=== PATIENT | female | born 1980 | race Caucasian/White ===

== ENCOUNTER 2021-11-22 08:00 | Emergency (ER) | payer MEDICAID, SELFPAY ==
[2021-11-22 08:07] VITALS: BP 126/72; PULSE 72; RESP 16; TEMP 37.6; O2SAT 99
--- NOTE | 2021-11-22 08:22 | ED.GENADUL_ITS ---
Discharge Plan Disposition Patient Disposition: HOME Condition: Stable Discharge Details Clinical Impression: Cellulitis Primary Care Provider: Yuliya Horne ED Provider: Manuel Can Home Meds and New Rx's Prescriptions: New sulfamethoxazole-trimethoprim [Bactrim DS] 800-160 mg tablet 1 tab PO BID Qty: 20 RF: 0 Discharge Instructions Instructions: Cellulitis (ED) Additional Instructions: Bactrim as directed. Rest, elevate, warm compresses every 2 hours for 20 minutes. [id number] Tylenol and/or Motrin as directed for discomfort. Please follow the instructions given to you by the power and recovery supervisor team. Please watch for new or worsening symptoms and return to the ER for any concerns. Lastly, I recommend following up with your primary care provider in few days for cellulitis recheck. Medical Decision Making 41-year-old female reports left foot cellulitis status post IV drug use yesterday, relapsing with IV cocaine approximately 2 months ago. She has no concern for retained foreign body, declines a x-ray of the left foot. Will update tetanus today, initiate oral antibiotics, Bactrim, and request that the power and recovery supervisor come talk with the patient. Clinically she appears well, nontoxic, nonseptic, afebrile, no lymphangitic streaking. Neuro, vascular, tendon intact. First dose of p.o. antibiotics given here in the ER. college coach here in room 1 to talk with the patient. Patient has no additional questions or concerns and is comfortable with discharge at this time. Standard discharge and return precautions were provided This documentation was generated using Edfa3ly dictation system, please disregard any oddities of phrase or misspellings. Medical Records Medical records reviewed: Yes I reviewed the patient's medical records. HPI General Mode of arrival: ambulatory . Date/Time Provider Initiated Documentation: 11/22/21 08:14 . Limitations to Documentation: no limitations . Information obtained by: patient . HPI Narrative: This is a 41-year-old female, denies significant past medical history, presenting to the ER for left foot cellulitis that began yesterday after relapsing with IV cocaine. Patient states that she was clean for 12 years but relapsed approximately 2 months ago. She states that she was initially using both of her upper extremities but has since moved down to her foot. Began using her left foot yesterday and noticed now that it is warm, red, painful. She denies fever, numbness, tingling, weakness or any other injuries. Denies skin rash elsewhere on her body. She states that she is careful with the needles and has no suspicion for retained foreign body. She would like to speak with a power and recovery supervisor. Reports the pain is moderate at rest worse with movement or bearing weight. She has not taken any [id number] medication for her symptoms. Related Data Home Medications Medication Instructions Recorded Confirmed sulfamethoxazole-trimethoprim 1 tab PO BID #20 tab 11/22/21 [Bactrim DS] Previous Rx's Medication Instructions Recorded sulfamethoxazole-trimethoprim 1 tab PO BID #20 tab 11/22/21 [Bactrim DS] Allergies Allergy/AdvReac Type Severity Reaction Status Date / Time No Known Allergies Allergy Verified 11/22/21 08:10 General Stated Complaint: Cellulitis JOURDAN: 4 Review of Systems Constitutional Constitutional: Denies fever(s) and Denies weakness Musculoskeletal Musculoskeletal: Denies arthralgias, Denies numbness, Reports stiffness and D enies tingling Integumentary/Breasts Skin/Breast: Reports erythema Neurologic Neurologic: Denies numbness, Denies tingling and Denies weakness PFSH All Active Problems (Updated 11/22/21 @ 10:38 by NIKI Mendez) Cellulitis (Acute) Insect bite (Acute) Unwanted fertility (Acute 11/02/15) l/s tubal scheduled 11/04/15 Supervision of normal IUP (intrauterine ) in multigravida (Acute 04/16/15) Tobacco abuse (Acute 03/18/18) PTSD (post-traumatic stress disorder) (Acute 03/18/18) Anxiety (Acute 06/29/16) Adjustment disorder with mixed anxiety and depressed mood (Acute 11/02/16) Medical History Anxiety Umbilical hernia Surgical History Ligation of fallopian tube Repair of umbilical hernia (08/23/16) incarcerated Family History Mother Essential hypertension Hyperlipidemia Father Alcohol abuse Mental disorder Depression Brother Personal history of malignant neoplasm rare brain cancer in infancy, resolved Grandfather , [place] at age 41. Myocardial infarction Social History Smoking/Tobacco Use Status: Current every day Tobacco Type: cigarettes Smoking risk assessment performed?: Yes Alcohol Intake: current Alcohol Intake frequency: a few times a month Drug use: Current Sobriety Substance use type: marijuana, crack/cocaine, heroin, amphetamines, hallucinogens, tranquilizers, sedatives, opiates, painkillers, club/senior interaction designer drugs, IV drugs, methamphetamine and prescription drug Details: Has beens mychal for 12 years, relapsed for 2 months, wants to become sober again Do you feel safe at home: Yes Do you feel safe in your relationship?: Yes Exam Const General: cooperative, healthy appearing, comfortable and no acute distress Orientation: alert and awake HENMT Head: normal to inspection, normocephalic and atraumatic Eyes General: appearance normal, both eyes and all related structures Conjunctivae: conjunctivae normal Neck Neck: normal visual inspection, trachea midline and supple Resp Effort & Inspection: normal respiratory effort and able to speak in complete sentences Cardio Rate: regular rate Rhythm: regular rhythm Skin Lesions: no lesions Neuro General: patient alert, patient awake, moves all extremities and no focal motor deficits Cognition: normal cognition Speech: speech normal Gait: antalgic Motor: muscle tone normal throughout Sensory Exam: no sensory deficits noted Extrem General: full ROM and capillary refill normal Ankle/foot/toe images: 1. There is noncircumferential tender, warm, macular erythema with multiple track stanton. There is no induration, fluctuance, drainage, signs of pointing abscess. No obvious signs of foreign body. Neuro, vascular, tendon intact. Normal dorsalis pedal pulse and capillary refill. Psych Appearance: grossly normal Mental Status: mental status grossly normal Course Vital Signs Vital signs: Vital Signs Temperature 37.6 C 11/22/21 08:07 Pulse 72 11/22/21 08:07 Respiratory Rate 16 11/22/21 08:07 Blood Pressure 126/72 11/22/21 08:07 Pulse Oximetry 99 11/22/21 08:07 Temperature 37.6 C 11/22/21 08:07 Temperature Source Skin 11/22/21 08:07 Pulse 72 11/22/21 08:07 Respiratory Rate 16 11/22/21 08:07 Blood Pressure 126/72 11/22/21 08:07 Blood Pressure Position Sitting 11/22/21 08:07 Pulse Oximetry 99 11/22/21 08:07 Oxygen Delivery Method Room Air 11/22/21 08:07 Oxygen Flow Rate 0 11/22/21 08:07 Pain Level 6 11/22/21 08:07
[2021-11-22] MEDS: Sulfameth/Trimeth DS TAB 1 TAB PO (08:54)
[2021-11-22 10:47] VITALS: BP 132/79; PULSE 80; RESP 16; TEMP 37.8; O2SAT 99
== END 2021-11-22 10:45 | disposition home or self-care (01) ==
PROVIDERS: Emergency Provider Physician Assistant; PCP Nurse Practitioner
DX: L03.116 Cellulitis of left lower limb (principal); F14.20 Cocaine dependence, uncomplicated
CPT/HCPCS: 90471; 99284; 99283

== ENCOUNTER 2022-03-17 11:32 | Emergency (ER) | payer MEDICAID, SELFPAY ==
[2022-03-17 11:48] VITALS: BP 119/83; PULSE 81; RESP 16; TEMP 36.3; O2SAT 100
--- NOTE | 2022-03-17 12:00 | ED.GENADUL_ITS ---
Discharge Plan Disposition Patient Disposition: HOME Condition: Improving Discharge Details Clinical Impression: Urticaria Primary Care Provider: Yuliya Horne ED Provider: Sharad Chua Home Meds and New Rx's Prescriptions: No Action No Known Home Meds Discharge Instructions Instructions: Urticaria (ED) Additional Instructions: Claritin will help to extinguish your histamine release today. Cool compress will aid as well. Return to ER for any acute concerns. Medical Decision Making 41-year-old female presents with urticarial pruritic rash of unknown inciting agent. Improving by the time of arrival. She will note to me that she started using cocaine again but declines any offer of referral to treatment. Given a single Claritin to help extinguish her symptoms. She is stable for outpatient management. HPI General Mode of arrival: ambulatory . Date/Time Provider Initiated Documentation: 03/17/22 11:35 . Limitations to Documentation: no limitations . Information obtained by: patient . History of Present Illness 41 year old F presents to the emergency department with the chief complaint of Rash, itchy, improving, described as mild, and is localized to the chest and abdomen. Patient reports no radiation. Patient started experiencing this hour(s) and it has been other (Improving). No relieving factors improve symptom(s), No exacerbating factors reported . Patient notes denies shortness of breath and syncope. Patient did receive the following treatments prior to arrival, none Related Data Home Medications Medication Instructions Recorded Confirmed Unknown [No Known Home Meds] 03/17/22 03/17/22 Allergies Allergy/AdvReac Type Severity Reaction Status Date / Time No Known Allergies Allergy Verified 03/17/22 11:54 General Stated Complaint: RashLesion JOURDAN: 4 Review of Systems Narrative: No known inciting agent. Has been using cocaine, just stopped using IV. No shortness of breath, no throat swelling. 8 systems reviewed and otherwise negative PFSH All Active Problems Urticaria (Acute) Insect bite (Acute) Unwanted fertility (Acute 11/02/15) l/s tubal scheduled 11/04/15 Supervision of normal IUP (intrauterine ) in multigravida (Acute 04/16/15) Tobacco abuse (Acute 03/18/18) PTSD (post-traumatic stress disorder) (Acute 03/18/18) Anxiety (Acute 06/29/16) Adjustment disorder with mixed anxiety and depressed mood (Acute 11/02/16) Medical History Anxiety Umbilical hernia Surgical History Ligation of fallopian tube Repair of umbilical hernia (08/23/16) incarcerated Family History Mother Essential hypertension Hyperlipidemia Father Alcohol abuse Mental disorder Depression Brother Personal history of malignant neoplasm rare brain cancer in infancy, resolved Grandfather , [place] at age 41. Myocardial infarction Social History Smoking/Tobacco Use Status: Current every day Tobacco Type: cigarettes Smoking risk assessment performed?: Yes Alcohol Intake: current Alcohol Intake frequency: a few times a month Drug use: Current Sobriety Substance use type: marijuana, crack/cocaine, heroin, amphetamines, hallucinogens, tranquilizers, sedatives, opiates, painkillers, club/world designer drugs, IV drugs, methamphetamine and prescription drug Details: Has beens mychal for 12 years, relapsed for 2 months, wants to become sober again Do you feel safe at home: Yes Do you feel safe in your relationship?: Yes Exam Narrative Exam Narrative: GEN: awake, alert, oriented 3. Pleasant, well groomed, interactive. HEAD: Normocephalic, atraumatic ENT: Mucous membranes moist, oropharynx unremarkable, External ear exam unremarkable EYES: PERRL, EOMI NECK: Full ROM, no EMMANUELLE, no menigismus CHEST/RESP: Nontender, clear to auscultation bilateral, no wheeze/rhonchi/rales CARDIOVASCULAR: RRR, no murmur, rub jeff. 2+ Rad pulse bilateral ABDOMEN: Soft, nontender, no mass. +Bowel sounds EXT: Full ROM, track stanton bilateral upper extremity. Skin reveals scant urticaria primarily on thorax. Excoriations present Neuro: Grossly normal neurologic exam, conversant, interactive. Psych: Speech fluent, thoughts congruent, affect normal Course Vital Signs Vital signs: Vital Signs Temperature 36.3 C L 03/17/22 11:48 Pulse 81 03/17/22 11:48 Respiratory Rate 16 03/17/22 11:48 Blood Pressure 119/83 03/17/22 11:48 Pulse Oximetry 100 03/17/22 11:48 Temperature 36.3 C L 03/17/22 11:48 Temperature Source Temporal Artery Scan 03/17/22 11:48 Pulse 81 03/17/22 11:48 Respiratory Rate 16 03/17/22 11:48 Respiratory Effort 03/17/22 11:48 Blood Pressure 119/83 03/17/22 11:48 Pulse Oximetry 100 03/17/22 11:48 Oxygen Delivery Method Room Air 03/17/22 11:48 Oxygen Flow Rate 0 03/17/22 11:48 Pain Level 0 03/17/22 11:48
[2022-03-17] MEDS: Loratidine 10 MG TAB PO (12:08)
== END 2022-03-17 12:11 | disposition home or self-care (01) ==
PROVIDERS: Emergency Provider Emergency Medicine; PCP Nurse Practitioner
DX: L50.9 Urticaria, unspecified (principal)
CPT/HCPCS: 99283

== ENCOUNTER 2022-06-27 19:53 | Outpatient (CLI) | payer MEDICAID, SELFPAY ==
[2022-06-27 16:49] LABS: Abs Immature Grans 0.02 10^3/uL (0.0-0.06); Absolute Basophil Count 0.02 10^3/uL (0.0-0.2); Absolute Eosinophil Count 0.04 10^3/uL (0.0-0.7); Absolute Lymphocyte Count 0.92 10^3/uL (1.2-3.4); Absolute Monocyte Count 0.83 10^3/uL (0.1-0.8); Absolute Neutrophil Count 6.59 10^3/uL (1.2-6.7); Basophils % 0.2; Eosinophils % 0.5; HCT 35.7 % (36.0-46.0); HGB 12.2 g/dL (11.2-15.7); Immature Grans % 0.2; Lymphocytes % 10.9; MCH 30.1 pg (27.0-33.0); MCHC 34.2 % (32.0-36.0); MCV 88 fL (80-95); MPV 9.7 fL (8.0-11.0); Monocytes % 9.9; Neutrophils % 78.3; Platelet Count 276 10^3/uL (130-400); RBC 4.05 10^6/uL (3.93-5.22); RDW 12.6 % (11.7-14.6); WBC 8.42 10^3/uL (4.4-10.8)
[2022-06-27 17:08] LABS: ALT 49 U/L (14-59); AST 39 U/L (15-37); Albumin 3.8 g/dL (3.4-5.0); Alkaline Phosphatase 75 U/L (46-116); Anion Gap 5.5 mmol/L (3-11); BUN 13 mg/dL (7-18); Bilirubin, Total 0.6 mg/dL (0.2-1.0); CO2 30.5 mmol/L (21.0-32.0); CREATININE 0.8 mg/dL (0.55-1.02); Calcium 8.5 mg/dL (8.5-10.1); Chloride 91 mmol/L (98-107); Estimated GFR 94.28 (mL/min/1.73m2); Glucose 186 mg/dL (74-106); Potassium 3.1 mmol/L (3.5-5.1); Sodium 127 mmol/L (136-145); Total Protein 7.5 g/dL (6.4-8.2)
[2022-06-29 09:23] LABS: HIV-1/2 Ag & Ab Screen Negative (Negative)
== END 2022-06-27 19:54 | disposition home or self-care (01) ==
LOC: LBO 19:54
PROVIDERS: PCP Nurse Practitioner; Visit Provider Nurse Practitioner Family
DX: R60.0 Localized edema (principal)
CPT/HCPCS: 36415; 80053; 87389; 85025

== ENCOUNTER 2022-06-28 13:56 | Emergency (ER) | payer MEDICAID, SELFPAY ==
[2022-06-28 13:58] VITALS: BP 122/102; PULSE 99; RESP 16; TEMP 36.9; O2SAT 98
[2022-06-28 14:28] LABS: Bilirubin Negative (Negative); Blood Trace-intact (Negative); Clarity Clear (Clear); Glucose Negative (Negative); Ketones Negative (Negative); Leukocyte Esterase Negative (Negative); Nitrite Negative (Negative); Specific Gravity 1.015 (1.005-1.025); Urobilinogen 0.2 EU/dL (Up TO 0.2); pH 7.5 (5-8)
[2022-06-28 14:36] LABS: Bacteria Negative HPF (Negative); C & S Indicated? No; Casts 0-2 Hyaline LPF (Negative); Crystals Negative HPF (Negative); Epithelial Cells Rare HPF (Negative); Mucus Negative (Negative); RBC 0-2 HPF (0-2); WBC Negative HPF (0-5)
[2022-06-28 15:06] LABS: Abs Immature Grans 0.03 10^3/uL (0.0-0.06); Absolute Basophil Count 0.02 10^3/uL (0.0-0.2); Absolute Eosinophil Count 0.07 10^3/uL (0.0-0.7); Absolute Lymphocyte Count 1.45 10^3/uL (1.2-3.4); Absolute Monocyte Count 1.18 10^3/uL (0.1-0.8); Absolute Neutrophil Count 8.67 10^3/uL (1.2-6.7); Basophils % 0.2; Eosinophils % 0.6; HCT 38.4 % (36.0-46.0); HGB 13.1 g/dL (11.2-15.7); Immature Grans % 0.3; Lymphocytes % 12.7; MCH 30.6 pg (27.0-33.0); MCHC 34.1 % (32.0-36.0); MCV 90 fL (80-95); MPV 9.9 fL (8.0-11.0); Monocytes % 10.3; Neutrophils % 75.9; Platelet Count 315 10^3/uL (130-400); RBC 4.28 10^6/uL (3.93-5.22); RDW 12.7 % (11.7-14.6); RDW-SD 42.3 fL; WBC 11.42 10^3/uL (4.4-10.8)
[2022-06-28 15:23] LABS: ALT 44 U/L (14-59); AST 24 U/L (15-37); Albumin 3.6 g/dL (3.4-5.0); Alkaline Phosphatase 71 U/L (46-116); BUN 10 mg/dL (7-18); Bilirubin, Total 0.5 mg/dL (0.2-1.0); CO2 37.1 mmol/L (21.0-32.0); CREATININE 0.8 mg/dL (0.55-1.02); Calcium 8.7 mg/dL (8.5-10.1); Chloride 98 mmol/L (98-107); Estimated GFR 94.28 (mL/min/1.73m2); Glucose 97 mg/dL (74-106); Magnesium 2.3 mg/dL (1.8-2.4); Potassium 3.7 mmol/L (3.5-5.1); Total Protein 7.7 g/dL (6.4-8.2)
[2022-06-28 15:27] LABS: Anion Gap 2.9 mmol/L (3-11)
[2022-06-28 15:31] LABS: Sodium 138 mmol/L (136-145)
[2022-06-28 15:54] LABS: NT-proBNP 52 pg/mL (<300)
--- NOTE | 2022-06-28 16:03 | ED.GENADUL_ITS ---
Discharge Plan Disposition Patient Disposition: HOME Condition: Stable Discharge Details Clinical Impression: Bilateral swelling of feet, Cocaine abuse Primary Care Provider: Yuliya Horne ED Provider: Prasanna King Home Meds and New Rx's Prescriptions: New sulfamethoxazole-trimethoprim [Bactrim DS] 800-160 mg tablet 1 tab PO BID Qty: 14 0RF Discharge Instructions Instructions: Cocaine Abuse (ED), Leg Edema (ED) Additional Instructions: Please take the antibiotic as prescribed. Please follow-up with your primary care physician. Call tomorrow to arrange follow-up. Return to the emergency department immediately for any worsening or new concerning symptoms. Referrals: Yuliya Horen, GRAINING OPERATOR [Primary Care Provider] - Discharge Data Discharge Date/Time-TO BE ENTERED AT DEPARTURE: 06/28/22 17:35 Medical Decision Making 41-year-old female history of IV drug use, cocaine abuse, here with bilateral feet swelling over the past 2 to 3 days. She has bilateral edema of the feet and ankles as well as erythema left greater than right. No known exposure to allergen. She does not inject in her feet or legs. Considered acute kidney injury. Labs reviewed and creatinine is normal. Considered DVT. Ultrasound of the lower extremities was interpreted by radiology as normal.. She does have a mild leukocytosis. Consider cellulitis. Plan to initiate treatment with Keflex and also Bactrim for MRSA coverage. SBIRT screener did engaged patient - patient is not interested in substance use disorder treatment at this time. Plan for discharge with outpatient follow-up. Disposition decision was made weighing the risks and benefits of hospitalization versus outpatient treatment, the risk for further decompensation, and the patient's wishes. The patient was stable and requested discharge. Prior to discharge, my usual and customary return precautions were reviewed with the patient - this included follow-up instructions and reason to return to the emergency department if condition worsens, does not improve as expected, or other new concerns arise. HPI General Mode of arrival: ambulatory . Date/Time Provider Initiated Documentation: 06/28/22 14:10 . Limitations to Documentation: no limitations . Information obtained by: patient . HPI Narrative: 41-year-old female with history of IV drug abuse presents with chief complaint of swollen feet and ankles. Symptoms started 2 to 3 days ago and has persisted and worsened. Swelling now moderate. No modifiers. Patient notes she had outpatient lab work done yesterday that showed electrolyte abnormality. Patient denies injecting in her feet or legs. She denies associated shortness of breath or chest pain. She has no rash. No swelling elsewhere. Related Data Home Medications Medication Instructions Recorded Confirmed sulfamethoxazole 800 1 tab PO BID #14 tabs 06/28/22 mg-trimethoprim 160 mg tablet (Bactrim DS) Previous Rx's Medication Instructions Recorded sulfamethoxazole 800 1 tab PO BID #14 tabs 06/28/22 mg-trimethoprim 160 mg tablet (Bactrim DS) Allergies Allergy/AdvReac Type Severity Reaction Status Date / Time No Known Allergies Allergy Verified 06/28/22 14:03 General Stated Complaint: GenMedical JOURDAN: 3 Review of Systems All systems reviewed & are unremarkable except as noted in HPI and below Constitutional Constitutional: Denies fever(s) Integumentary/Breasts Skin/Breast: Denies rash PFSH All Active Problems Bilateral swelling of feet (Acute) Cocaine abuse (Acute) Insect bite (Acute) Unwanted fertility (Acute 11/02/15) l/s tubal scheduled 11/04/15 Supervision of normal IUP (intrauterine ) in multigravida (Acute 04/16/15) Tobacco abuse (Acute 03/18/18) PTSD (post-traumatic stress disorder) (Acute 03/18/18) Anxiety (Acute 06/29/16) Adjustment disorder with mixed anxiety and depressed mood (Acute 11/02/16) Medical History Anxiety Umbilical hernia Surgical History Ligation of fallopian tube Repair of umbilical hernia (08/23/16) incarcerated Family History Mother Essential hypertension Hyperlipidemia Father Alcohol abuse Mental disorder Depression Brother Personal history of malignant neoplasm rare brain cancer in infancy, resolved Grandfather , [place] at age 41. Myocardial infarction Social History Smoking/Tobacco Use Status: Current every day Tobacco Type: cigarettes Smoking risk assessment performed?: Yes Alcohol Intake: current Alcohol Intake frequency: a few times a month Drug use: Current Sobriety Substance use type: marijuana, crack/cocaine, heroin, amphetamines, hallucinogens, tranquilizers, sedatives, opiates, painkillers, club/systems designer drugs, IV drugs, methamphetamine and prescription drug Details: Has beens mychal for 12 years, relapsed for 2 months, wants to become sober again Do you feel safe at home: Yes Do you feel safe in your relationship?: Yes Exam Const General: cooperative and no acute distress [facility] Head: normocephalic Mouth: moist mucous membranes Eyes Conjunctivae: normal conjunctivae Sclera: normal sclerae Neck Neck: trachea midline and supple Resp Auscultation: clear to auscultation bilaterally, no rales, no rhonchi and no wheezes Cardio Rate: regular rate and not tachycardic Rhythm: regular rhythm GI Palpation: soft, not firm, no guarding, no masses, not rigid and nontender Skin General skin exam: erythema (mild bilateral feet, left > right) Neuro General: patient alert, patient awake, patient oriented x3 and tone normal Extrem General: no calf tenderness and edema Laterality: bilateral (feet and ankles) Psych Appearance: grossly normal Mental Status: mental status grossly normal Course Vital Signs Vital signs: Vital Signs Temperature 36.9 C 06/28/22 13:58 Pulse 99 H 06/28/22 13:58 Respiratory Rate 16 06/28/22 13:58 Blood Pressure 122/102 H 06/28/22 13:58 Pulse Oximetry 98 06/28/22 13:58 Temperature 36.9 C 06/28/22 13:58 Temperature Source Oral 06/28/22 13:58 Pulse 99 H 06/28/22 13:58 Respiratory Rate 16 06/28/22 13:58 Respiratory Effort Non-Labored 06/28/22 14:04 Blood Pressure 122/102 H 06/28/22 13:58 Blood Pressure Position Sitting 06/28/22 13:58 Pulse Oximetry 98 06/28/22 13:58 Oxygen Delivery Method Room Air 06/28/22 13:58 Oxygen Flow Rate 0 06/28/22 13:58 Pain Level 6 06/28/22 13:58 Lab/Test Results Lab/Test Results: Laboratory Tests Range/Units 06/28/22 06/28/22 06/28/22 14:12 14:55 14:55 WBC (4.4-10.8) 10^3/uL 11.42 H RBC (3.93-5.22) 10^6/uL 4.28 Hgb (11.2-15.7) g/dL 13.1 Hct (36.0-46.0) % 38.4 MCV (80-95) fL 90 MCH (27.0-33.0) pg 30.6 MCHC (32.0-36.0) % 34.1 RDW (11.7-14.6) % 12.7 Plt Count (130-400) 10^3/uL 315 MPV (8.0-11.0) fL 9.9 Immature Gran % 0.3 Neutrophils % 75.9 Lymphocytes % 12.7 Monocytes % 10.3 Eosinophils % 0.6 Basophils % 0.2 Nucleated RBC % (0.0-0.3) % 0.0 Absolute Neutrophils (1.2-6.7) 10^3/uL 8.67 H Absolute Lymphocytes (1.2-3.4) 10^3/uL 1.45 Absolute Monocytes (0.1-0.8) 10^3/uL 1.18 H Absolute Eosinophils (0.0-0.7) 10^3/uL 0.07 Absolute Basophils (0.0-0.2) 10^3/uL 0.02 Sodium (136-145) mmol/L 138 D Potassium (3.5-5.1) mmol/L 3.7 Chloride (98-107) mmol/L 98 Carbon Dioxide (21.0-32.0) mmol/L 37.1 H Anion Gap (3-11) mmol/L 2.9 L BUN (7-18) mg/dL 10 Creatinine (0.55-1.02) mg/dL 0.8 Est GFR (CKD-EPI 2020) (mL/min/1.73m2) 94.28 Glucose (74-106) mg/dL 97 Calcium (8.5-10.1) mg/dL 8.7 Magnesium (1.8-2.4) mg/dL 2.3 Total Bilirubin (0.2-1.0) mg/dL 0.5 AST (15-37) U/L 24 ALT (14-59) U/L 44 Alkaline Phosphatase (46-116) U/L 71 NT-Pro-B Natriuret Pep (<300) pg/mL Total Protein (6.4-8.2) g/dL 7.7 Albumin (3.4-5.0) g/dL 3.6 Urine Color (Yellow) Yellow Urine Clarity (Clear) Clear Urine pH (5-8) 7.5 Ur Specific [place] (1.005-1.025) 1.015 Urine Protein (Negative) mg/dL Trace H Urine Ketones (Negative) mg/dL Negative Urine Blood (Negative) Trace-intact H Urine Nitrite (Negative) Negative Urine Bilirubin (Negative) Negative Urine Urobilinogen (Up TO 0.2) EU/dL 0.2 Ur Leukocyte Esterase (Negative) Negative Urine RBC (0-2) HPF 0-2 Urine WBC (0-5) HPF Negative Ur Epithelial Cells (Negative) HPF Rare Urine Crystals (Negative) HPF Negative Urine Bacteria (Negative) HPF Negative Urine Casts (Negative) LPF 0-2 Hyaline Urine Mucus (Negative) Negative Ur Culture Indicated? No Urine Glucose (Negative) mg/dL Negative Range/Units 06/28/22 14:55 WBC (4.4-10.8) 10^3/uL RBC (3.93-5.22) 10^6/uL Hgb (11.2-15.7) g/dL Hct (36.0-46.0) % MCV (80-95) fL MCH (27.0-33.0) pg MCHC (32.0-36.0) % RDW (11.7-14.6) % Plt Count (130-400) 10^3/uL MPV (8.0-11.0) fL Immature Gran % Neutrophils % Lymphocytes % Monocytes % Eosinophils % Basophils % Nucleated RBC % (0.0-0.3) % Absolute Neutrophils (1.2-6.7) 10^3/uL Absolute Lymphocytes (1.2-3.4) 10^3/uL Absolute Monocytes (0.1-0.8) 10^3/uL Absolute Eosinophils (0.0-0.7) 10^3/uL Absolute Basophils (0.0-0.2) 10^3/uL Sodium (136-145) mmol/L Potassium (3.5-5.1) mmol/L Chloride (98-107) mmol/L Carbon Dioxide (21.0-32.0) mmol/L Anion Gap (3-11) mmol/L BUN (7-18) mg/dL Creatinine (0.55-1.02) mg/dL Est GFR (CKD-EPI 2020) (mL/min/1.73m2) Glucose (74-106) mg/dL Calcium (8.5-10.1) mg/dL Magnesium (1.8-2.4) mg/dL Total Bilirubin (0.2-1.0) mg/dL AST (15-37) U/L ALT (14-59) U/L Alkaline Phosphatase (46-116) U/L NT-Pro-B Natriuret Pep (<300) pg/mL 52 Total Protein (6.4-8.2) g/dL Albumin (3.4-5.0) g/dL Urine Color (Yellow) Urine Clarity (Clear) Urine pH (5-8) Ur Specific [place] (1.005-1.025) Urine Protein (Negative) mg/dL Urine Ketones (Negative) mg/dL Urine Blood (Negative) Urine Nitrite (Negative) Urine Bilirubin (Negative) Urine Urobilinogen (Up TO 0.2) EU/dL Ur Leukocyte Esterase (Negative) Urine RBC (0-2) HPF Urine WBC (0-5) HPF Ur Epithelial Cells (Negative) HPF Urine Crystals (Negative) HPF Urine Bacteria (Negative) HPF Urine Casts (Negative) LPF Urine Mucus (Negative) Ur Culture Indicated? Urine Glucose (Negative) mg/dL PAWSS Have you Been Recently Intoxicated or Drunk Within the Last 30 days?: No Have you Ever Experienced Previous Episodes of Alcohol Withdrawal?: Yes Have you ever Experienced Withdrawal Seizures?: No Have you ever Experienced Delirium Tremens(DT)s?: Yes Have you ever undergone Alcohol Rehabilitation Treatment (i.e, inpt ot outpatient treatment programs)?: Yes Have you ever Experienced Blackouts?: Yes Have you ever Combined Alcohol with other Downers within the last 90 days?: No Have you ever Combined Alcohol with any other Substance of Abuse during the last 90 days?: No Positive Blood Alcohol level on Presentation? [PCS.BAL]: No Evidence of Increased Autonomic Activity (i.e. HR>120, tremor, sweating, agitation, nausea)?: No Result: 4
--- NOTE | 2022-06-28 16:15 | DI.US_ITS ---
Exam(s) US LOWER EXTREMITY VENOUS RT EXAM: US LOWER EXTREMITY VENOUS RT CLINICAL HISTORY: swelling TECHNIQUE: Grayscale, color, and doppler imaging of the deep venous system of the right lower extrem ity was performed. COMPARISON: No exams were available for comparison FINDINGS: There is no evidence of intraluminal thrombus and there is normal compression and augmentation demons trated within the common femoral vein, femoral vein, and popliteal vein. In the ipsilateral calf the interrogated veins also exhibit normal compression/ augmentation properti es. The ipsilateral saphenofemoral junction is patent. IMPRESSION: 1. No evidence of DVT in the right lower extremity. DATA REPOSITORY:
--- NOTE | 2022-06-28 16:15 | DI.US_ITS ---
Exam(s) US LOWER EXTREMITY VENOUS LT EXAM: US LOWER EXTREMITY VENOUS LT CLINICAL HISTORY: swelling TECHNIQUE: Grayscale, color, and doppler imaging of the deep venous system of the left lower extremi ty was performed. COMPARISON: No exams were available for comparison FINDINGS: There is no evidence of intraluminal thrombus and there is normal compression and augmentation demons trated within the common femoral vein, femoral vein, and popliteal vein. In the ipsilateral calf the interrogated veins also exhibit normal compression/ augmentation properti es. The ipsilateral saphenofemoral junction is patent. IMPRESSION: 1. No evidence of DVT in the left lower extremity. DATA REPOSITORY:
[2022-06-28 17:25] VITALS: RESP 18
[2022-06-28] MEDS: Sulfameth/Trimeth DS TAB 1 TAB PO (17:34)
[2022-06-28] MEDS: Cephalexin 500 MG CAP PO (17:34)
== END 2022-06-28 17:35 | disposition home or self-care (01) ==
PROVIDERS: Emergency Provider Student in an Organized Health Care Education/Training Program; PCP Nurse Practitioner
DX: M79.89 Other specified soft tissue disorders (principal); F14.10 Cocaine abuse, uncomplicated; D72.829 Elevated white blood cell count, unspecified; L53.9 Erythematous condition, unspecified; F17.210 Nicotine dependence, cigarettes, uncomplicated
CPT/HCPCS: 80053; 99284; 81003; 81015; 83735; 83880; 85025; 93971

== ENCOUNTER 2023-01-15 15:14 | Emergency (ER) | payer MEDICAID, SELFPAY ==
[2023-01-15 15:19] VITALS: BP 133/79; PULSE 94; RESP 16; TEMP 37.3; O2SAT 95
[2023-01-15 15:23] VITALS: RESP 16
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
[2023-01-15 17:02] LABS: *AMPHETAMINES SCREEN URINE Negative (Negative); *BARBITURATES SCREEN URINE Negative (Negative); *BENZODIAZEPINES SCREEN URINE Negative (Negative); Cannabinoids THC Negative (Negative); Cocaine Screen,Urine Positive (Negative); METHADONE URINE SCREEN Negative (Negative); OPIATES URINE SCREEN Negative (Negative)
[2023-01-15 17:07] LABS: Tricyclic Antidepressants Negative (Negative)
== END 2023-01-15 17:00 | disposition left against medical advice (07) ==
PROVIDERS: Emergency Provider Physician Assistant; PCP Nurse Practitioner
DX: F14.90 Cocaine use, unspecified, uncomplicated (principal)
CPT/HCPCS: 80053; 80076; 80307; 81025; 87389; 99283; 80320; 85025; 99284

== ENCOUNTER 2025-05-07 19:21 | Inpatient (IN) | payer MEDICAID, SELFPAY ==
[2025-05-07] VITALS (25 sets, daily range): BP systolic 111–151; BP diastolic 54–79; PULSE 25–95; RESP 18; TEMP 38.2; O2SAT 89–99
--- NOTE | 2025-05-07 20:04 | W.ED.GENAD ---
Discharge Plan Disposition Patient Disposition: Admit to [facility] Condition: Stable Discharge Details Clinical Impression: Cellulitis of face, Submandibular space infection, Sepsis Primary Care Provider: Yuliya Horne ED Provider: Nieves Rockwell Home Meds and New Rx's Prescriptions: No Action methadone 10 mg/mL concentrate 150 mg PO DAILY sulfamethoxazole-trimethoprim [Bactrim DS] 800-160 mg tablet 1 tab PO BID Qty: 14 0RF Patient Comments: Rx complete HPI General Mode of arrival: ambulatory. Date/Time Provider Initiated Documentation: 05/07/25 19:25. Limitations to Documentation: no limitations. Information obtained by: patient, RN notes reviewed and old records reviewed. HPI Narrative: 44-year-old female presents to the ER with a chief complaint of left sided facial swelling and left-sided neck swelling which she noticed approximately 3 to 4 days ago. She does have a history of IV drug use, she denies current use and is on methadone. She states that she does stay with some people that have MRSA. She does have multiple lesions noted also to her scalp and small lesions to side of her face and legs. She presents febrile with a temp of 38.2 heart rate 95. Related Data Home Medications ?Medication ?Instructions ?Recorded ?Confirmed sulfamethoxazole 800 1 tab PO BID #14 tabs 06/28/22 mg-trimethoprim 160 mg tablet (Bactrim DS) methadone 10 mg/mL oral concentrate 150 mg PO DAILY 05/07/25 05/07/25 Previous Rx's ?Medication ?Instructions ?Recorded sulfamethoxazole 800 1 tab PO BID #14 tabs 06/28/22 mg-trimethoprim 160 mg tablet (Bactrim DS) Allergies Allergy/AdvReac Type Severity Reaction Status Date / Time No Known Allergies Allergy Verified 05/07/25 19:47 General Stated Complaint: Cellulitis JOURDAN: 3 Review of Systems All systems reviewed & are unremarkable except as noted in HPI and below Constitutional Constitutional: Reports as per HPI, Reports body ache(s) and Reports fever(s) ENT Ears, Nose, Mouth, and Throat: Reports as per HPI, Denies change in voice, Denies dysphagia, Reports facial pain, Denies hoarseness, Reports lip swelling, Reports mouth lesions, Reports mouth pain, Reports neck mass, Reports neck pain and Denies tongue swelling Cardiovascular Cardiovascular: Denies chest pain, Denies syncope, Denies rapid heart rate and Denies dyspnea on exertion Respiratory Respiratory: Denies cough, Denies dyspnea on exertion and Denies wheezing Gastrointestinal Gastrointestinal: Denies dysphagia Musculoskeletal Musculoskeletal: Reports neck pain Integumentary/Breasts Skin/Breast: Reports as per HPI, Reports lesions, Reports rash, Reports skin pain, Reports skin swelling (Top of scalp) and Reports sores (Legs and arms) Neurologic Neurologic: Denies syncope Hematologic/Lymphatic Hematologic/Lymphatic: Reports lymphadenopathy (Anterior Lymphadenopathy greater on left ) Allergic/Immunologic Allergic/Immunologic: Reports lip swelling, Denies tongue swelling and Denies wheezing Exam Narrative Exam Narrative: Constitutional: Alert and oriented x3. Appears older than stated age. Thin body habitus. Appers acutely ill and uncomfortable. Head: Normocephalic, no trauma. There is a lesion noted to her left posterior parietal scalp tender with palpation. Eyes: Pupils PERRL, Red reflex noted, EOM's intact. Eyelids symmetrical without lesions, discharge, or swelling. ENT: Bilateral TM's WNL, External ear normal to inspection, no mastoid , swelling, or erythema, Nasal turbinates WNL, no nasal discharge. Poor dentition, patient has restricted motion of opening her mouth to approximately 5 cm without significant pain, no trismus noted however she does have some swelling to the left side of her face left lower lip and anterior left neck. Positive lymphadenopathy palpated, she has a lesion noted to the corner of her left lip, see below. Exam was limited due to patient's discomfort of her posterior oropharynx however she is speaking in full sentences no stridor auscultated, no drooling, no muffled voice. Chest: RRR, Normal S1, S2, distal pulses intact. Resp: Lungs clear to auscultation bilaterally, no wheezes, rales, or rhonchi. Abdomen: Soft, non-distended, Normoactive bowel sounds all 4 quads. Musculoskeletal: Normal gait, Moves all 4 extremities without difficulty. Skin: Multiple lesions to her legs, she reports lesions to her arms capillary refill less than 2 sec. Neurologic: Cranial nerves II-XII intact. Alert and oriented x 3. Motor: No deficits noted. Sensory: Intact bilaterally all 4 extremities. Hematologic/Lymphatic: No ecchymosis, no lymphadenopathy. [facility] General nose exam: external nose normal and nares normal Face and sinus: edema Face images:  1. Vesicular lesion, white, non-draining 2. Tenderness, swelling 3. TTP, swelling, positive lymphadenopathy Mouth: tongue normal, no audible dysphonia, no drooling, lip abnormal left lower swelling and lesion (Corner left lower lip), no muffled voice, oral mucosa abnormal edematous and restricted motion Teeth and gingiva: abnormal tooth or associated gingiva (Difficult to assess thoroughly due to swelling and pain ) lower left first bicuspid , caries and poor dentition Throat: other (Difficult to fully visualize, Malampati score 3) Neck Neck: trachea midline, anterior neck swelling and lymphadenopathy left anterior cervical fixed, warm and tender Lymphatic: lymphadenopathy Resp Effort & Inspection: normal respiratory effort, able to speak in complete sentences, no audible wheezes, no grunting, not labored, no nasal flaring, no respiratory distress, no stridor, not tachypneic, no tracheal deviation and no tripod positioning Auscultation: clear to auscultation bilaterally Course Vital Signs Vital signs: Vital Signs Temperature 38.2 C H 05/07/25 19:42 Pulse 95 H 05/07/25 19:42 Respiratory Rate 18 05/07/25 19:42 Blood Pressure 151/79 H 05/07/25 19:42 Pulse Oximetry 95 05/07/25 19:42 Temperature 38.2 C H 05/07/25 19:45 Temperature Source Oral 05/07/25 19:42 Pulse 95 H 05/07/25 19:42 Respiratory Rate 18 05/07/25 19:42 Blood Pressure 151/79 H 05/07/25 19:42 Pulse Oximetry 95 05/07/25 19:42 Oxygen Delivery Method Room Air 05/07/25 19:42 Oxygen Flow Rate 0 05/07/25 19:42 Pain Level 6 05/07/25 19:42 Lab/Test Results Lab/Test Results: 05/07/25 19:55 Blood Blood Culture - Pending 05/07/25 19:55 Blood Blood Culture - Pending Medical Decision Making 44-year-old female presents to the ER with a chief complaint of left sided facial swelling and left-sided neck swelling which she noticed approximately 3 to 4 days ago. She does have a history of IV drug use, she denies current use and is on methadone. She states that she does stay with some people that have MRSA. She does have multiple lesions noted also to her scalp and small lesions to side of her face and legs. She presents febrile with a temp of 38.2 heart rate 95. Workup ordered including CBC CMP C reactive protein, ESR, urine test, MRSA nasal swab and Wound swab, UDS, lactate and blood cultures x 2. CT head and neck with contrast ordered. 1 g vancomycin IV piggyback ordered. Differential diagnosis includes but not limited to dental abscess, Polo's angina, MRSA, parotiditis, Sialonditis, Sepsis, Will re-check Lactate after fluids. Will anticipate possible transfer to tertiary facility for ENT coverage. Discussed plan of care and possible transfer with patient who verbalized understanding and is in agreement with the plan. 4: [facility] [place] contacted to discuss patient with ENT. 2224: Spoke with Dr. Hernandez with [facility] who will speak with her attending and call me back. She recommends an additional broad spectrum Abx such as Unasyn and Dexamethasone 8 mg IV Q 8 hrs. 2236: On patient reevaluation she is maintaining her oxygen saturation 95% room air, fluids and initial antibiotics are infused, she reports feeling somewhat better. Upon repeat assessment the left mandible and submandibular space appears slightly less firm however it is log deck tender with palpation to her left anterior neck. Ampicillin-sulbactam 3 g ordered IV piggyback. 2240: Spoke again with Dr. Lucy Hernandez with ENT who reports that there is no procedure they would urgently perform at this time however, if patient's condition worsens to contact them again. Will contact hospitalist. 2243: Spoke with Dr. Tran via [email or web address] regarding patient case in details who agrees to accept patient for admission. Will inform patient of plan of care. At this time patient will board in ED pending bed availability. At the time of this dictation patient sleeping, breathing eupneic, easily arousable vital signs stable. Medical Records Medical records reviewed: Yes I reviewed the patient's medical records. Medical records narrative: Hx IVDA Imaging Data Radiologic Study: Imaging: CT Scan Radiologist's impression: Exam: CT Head With Contrast Exam date and time: 05/07/2025 8:40 PM Age: 44 years old Clinical indication: Other: Scalp swelling; Mass, lump, or swelling in neck; Left mouth and neck swelling, swelling scalp COMPARISON: No relevant prior studies available. FINDINGS: Brain: Unremarkable white matter. No mass effect. No abnormal enhancing lesions. Cerebral ventricles: Unremarkable. No ventriculomegaly. Bones/joints: Unremarkable. No acute fracture. Paranasal sinuses: Visualized sinuses are unremarkable. No fluid levels. Mastoid air cells: Visualized mastoid air cells are well aerated. Soft tissues: Unremarkable. IMPRESSION: No acute intracranial abnormality. Exam: CT Neck With Contrast Exam date and time: 05/07/2025 8:40 PM Age: 44 years old Clinical indication: Other: Scalp swelling; Mass, lump, or swelling in neck; Left mouth and neck swelling, swelling scalp COMPARISON: No relevant prior studies available. FINDINGS: Salivary glands: Normal. Glands are normal in size. Pharynx: Unremarkable. No significant tonsillar enlargement. Larynx: Unremarkable. Epiglottis is normal. Thyroid: Normal. No enlarged or calcified nodules. Trachea: Visualized trachea is unremarkable. Lungs: Unremarkable as visualized. Lymph nodes: Nonenlarged submandibular lymph nodes are noted. Bones/joints: See Soft tissues finding. Soft tissues: Diffuse soft tissue edema is identified involving the soft tissues adjacent to the left maxilla and mandible. In addition there is an area of enhancement identified adjacent to the left mandible in the soft tissues measuring 2.8 cm x 1.2 cm. Findings are consistent with the presence of a phlegmon with surrounding cellulitis. IMPRESSION: Phlegmon identified in the soft tissues adjacent to the left mandible and maxilla with surrounding soft tissue edema/cellulitis. Thank you for allowing us to participate in the care of your patient. Dictated and Authenticated by: Nav Kirk MD Lab Data Lab results reviewed: Yes I reviewed the patient's lab results. Labs: 05/07/25 20:37 Lip - Left Lower Wound Culture - Pending 05/07/25 20:37 Lip - Left Lower Gram Stain - Pending 05/07/25 20:36 Blood Blood Culture - Pending 05/07/25 20:06 Blood Blood Culture - Pending Laboratory Tests Range/Units 05/07/25 05/07/25 05/07/25 20:06 20:45 22:08 WBC (4.4-10.8) 10^3/uL 9.47 RBC (3.93-5.22) 10^6/uL 3.75 L Hgb (11.2-15.7) g/dL 10.8 L Hct (36.0-46.0) % 33.3 L MCV (80-95) fL 89 MCH (27.0-33.0) pg 28.8 MCHC (32.0-36.0) % 32.4 RDW (11.7-14.6) % 13.2 Plt Count (130-400) 10^3/uL 178 MPV (8.0-11.0) fL 10.2 Immature Gran % % 0.2 Neutrophils % % 96.6 Lymphocytes % % 2.7 Monocytes % % 0.3 Eosinophils % % 0.1 Basophils % % 0.1 Nucleated RBC % (0.0-0.3) % 0.0 Absolute Neutrophils (1.2-6.7) 10^3/uL 9.14 H Absolute Lymphocytes (1.2-3.4) 10^3/uL 0.26 L Absolute Monocytes (0.1-0.8) 10^3/uL 0.03 L Absolute Eosinophils (0.0-0.7) 10^3/uL 0.01 Absolute Basophils (0.0-0.2) 10^3/uL 0.01 ESR (0-20) mm/hr 13 VBG Lactate (<or=2.0) mmol/L 3.3 H* 0.6 Sodium (136-145) mmol/L 137 Potassium (3.5-5.1) mmol/L 3.9 Chloride (98-107) mmol/L 102 Carbon Dioxide (21.0-32.0) mmol/L 27.2 Anion Gap (3-11) mmol/L 7.8 BUN (7-18) mg/dL 17 Creatinine (0.55-1.02) mg/dL 1.0 Est GFR (CKD-EPI 2020) (mL/min/1.73m2) 70.80 Glucose (74-106) mg/dL 127 H Calcium (8.5-10.1) mg/dL 8.7 Magnesium (1.8-2.4) mg/dL 2.0 Total Bilirubin (0.2-1.0) mg/dL 0.4 AST (15-37) U/L 890 H ALT (14-59) U/L 304 H Alkaline Phosphatase (46-116) U/L 230 H C-Reactive Protein (<or=0.5) mg/dL 2.08 H Total Protein (6.4-8.2) g/dL 7.1 Albumin (3.4-5.0) g/dL 3.4 Add-On Test Request DONE Critical Care Time Critical Care Time Critical Care Time: Yes Total Critical Care Time: 45 Attestation: I spent greater than 35 minutes addressing this patient's acute life threatening illness. This time was spent engaged in actions directly related to the patient's care. Failure to initiate these interventions would have likely resulted in clinically significant or life threatening deterioration in the patients condition. [facility] All Active Problems (Updated 05/07/25 @ 23:19 by Nieves Rockwell NP) Sepsis (Acute) IVDU (intravenous drug user) (Acute) Severe sepsis (Acute) Submandibular space infection (Acute) Cellulitis of face (Acute) Insect bite (Acute) Unwanted fertility (Acute 11/02/15) l/s tubal scheduled 11/04/15 Supervision of normal IUP (intrauterine ) in multigravida (Acute 04/16/15) Tobacco abuse (Acute 03/18/18) PTSD (post-traumatic stress disorder) (Acute 03/18/18) Anxiety (Acute 06/29/16) Adjustment disorder with mixed anxiety and depressed mood (Acute 11/02/16) Medical History Anxiety Umbilical hernia Surgical History Ligation of fallopian tube Repair of umbilical hernia (08/23/16) incarcerated Family History Mother Essential hypertension Hyperlipidemia Father Alcohol abuse Mental disorder Depression Brother Personal history of malignant neoplasm rare brain cancer in infancy, resolved Grandfather , [place] at age 41. Myocardial infarction Social History Smoking/Tobacco Use Status: Current every day Tobacco Type: cigarettes Smoking risk assessment performed?: Yes Alcohol Intake: current Alcohol Intake frequency: a few times a month Drug use: Current Sobriety Substance use type: marijuana, crack/cocaine, heroin, amphetamines, hallucinogens, tranquilizers, sedatives, opiates, painkillers, club/architectural designer drugs, IV drugs, methamphetamine and prescription drug Do you feel safe at home: Yes Do you feel safe in your relationship?: Yes
[2025-05-07 20:17] LABS: Abs Immature Grans 0.02 10^3/uL (0.0-0.06); HCT 33.3 % (36.0-46.0); HGB 10.8 g/dL (11.2-15.7); Immature Grans % 0.2 %; MCH 28.8 pg (27.0-33.0); MCHC 32.4 % (32.0-36.0); MCV 89 fL (80-95); MPV 10.2 fL (8.0-11.0); Platelet Count 178 10^3/uL (130-400); RBC 3.75 10^6/uL (3.93-5.22); RDW 13.2 % (11.7-14.6); RDW-SD 42.7 fL; WBC 9.47 10^3/uL (4.4-10.8)
[2025-05-07 20:18] LABS: ESR 13 mm/hr (0-20)
[2025-05-07 20:40] LABS: ALT 304 U/L (14-59); AST 890 U/L (15-37); Albumin 3.4 g/dL (3.4-5.0); Alkaline Phosphatase 230 U/L (46-116); Anion Gap 7.8 mmol/L (3-11); BUN 17 mg/dL (7-18); Bilirubin, Total 0.4 mg/dL (0.2-1.0); C-Reactive Protein 2.08 mg/dL (<or=0.5); CO2 27.2 mmol/L (21.0-32.0); Calcium 8.7 mg/dL (8.5-10.1); Chloride 102 mmol/L (98-107); Estimated GFR 70.80 (mL/min/1.73m2); Glucose 127 mg/dL (74-106); Magnesium 2.0 mg/dL (1.8-2.4); Potassium 3.9 mmol/L (3.5-5.1); Sodium 137 mmol/L (136-145); Total Protein 7.1 g/dL (6.4-8.2)
[2025-05-07] MEDS: Normal Saline - Diluent 50 ML VIAL IJ (20:45)
[2025-05-07] MEDS: Omnipaque 350 MG/ML 100 ML BTL IJ (20:48)
--- NOTE | 2025-05-07 21:00 | DI.CT_ITS ---
Exam(s) CT HEAD NECK W EXAM: CT HEAD NECK W INDICATION: Left mouth and neck swelling, swelling scalp. COMPARISON: No exams were available for comparison TECHNIQUE: FINDINGS: CT NECK WITH: VISUALIZED PARANASAL SINUSES: There is mild mucosal thickening lateral wall the left maxillary sinus. There is no associated fluid level in the sinus. The remainder of the paranasal sinuses are clear, as are the mastoid air cells. NASOPHARYNX: Unremarkable ORODENTAL: Satisfactory dentition. No evidence of apical lucencies around the teeth. No evidence of lytic osseous findings. However, there is significant abnormal soft tissue edema in left side of the face adjacent to the left side of the mandible and maxilla and also in the left side of the oral cavity at this level. There is a peripherally enhancing abscess measuring approximately 1.4 x 0.8 x 1.1 cm in the subcutaneous tissues at this level. OROPHARYNX: Unremarkable. Also no evidence of retropharyngeal abscess. HYPOPHARYNX: Unremarkable. Valleculae and epiglottis and aryepiglottic folds appear normal. VOCAL CORDS: Unremarkable. No masses evident. Subglottic airway appears unremarkable. THYROID GLAND: Unremarkable. Normal size and no obvious nodules. SALIVARY GLANDS: Unremarkable. No significant findings in the parotid and submandibular glands. LYMPH NODES: Slightly enlarged sub platysmal lymph nodes are noted which are probably reactive to the above finding. There is no gross adenopathy evident in the neck and supraclavicular regions. OTHER: VISUALIZED LUNG APICES: No significant findings. CT BRAIN WITH: There is no evidence of intracranial hemorrhage, mass effect, or shift of midline structures. There are no extra-axial fluid collections. Ventricles are not enlarged or shifted and there is no blood thin ventricular system nor within the basal cisterns. No ring enhancing lesions in the brain. There is no abnormal meningeal enhancement, focal nor diffuse. No evidence of vascular malformation. No obvious aneurysms. IMPRESSION: 1. No acute intracranial findings. 2. Soft tissue phlegmon/abscess in the left-sided facial soft tissues adjacent left side of the mandible. There is overlying subcutaneous edema and cellulitis. There is no gas in the soft tissues. Preliminary vertebra Radiology report was reviewed. RADIATION DOSE DELIVERED: 989.55mGy.cm Total DLP DATA REPOSITORY: All CT scans at this facility are submitted to the National Radiology Data Registry (NRDR) Dose Index Registry (DIR) with the [employer] (A[employer]). RADIATION OPTIMIZATION: All CT scans at this facility use at least one of these dose optimization techniques: automated exposure control; mA and/or kV adjustment per patient size (includes targeted exams where dose is matched to clinical indication); or iterative reconstruction.
[2025-05-07] MEDS: Dexamethasone 10 MG/ML VIAL PO (21:02)
[2025-05-07] MEDS: VANCOMYCIN 1,000 MG in Normal Saline 250 ML 166.6666 MG IVPB (21:04)
[2025-05-07] MEDS: ACETAMINOPHEN 1,000 MG/100 ML BAG 400 MG IVPB (21:07)
[2025-05-07] MEDS: Normal Saline 1,000 ML 1000 ML IV (21:08)
--- NOTE | 2025-05-07 21:57 | DI.VRAD_ITS ---
PROCEDURE INFORMATION: Exam: CT Head With Contrast Exam date and time: 05/07/2025 8:40 PM Age: 44 years old Clinical indication: Other: Scalp swelling; Mass, lump, or swelling in neck; Left mouth and neck swelling, swelling scalp TECHNIQUE: Imaging protocol: Computed tomography of the head with intravenous contrast. Radiation optimization: All CT scans at this facility use at least one of these dose optimization techniques: automated exposure control; mA and/or kV adjustment per patient size (includes targeted exams where dose is matched to clinical indication); or iterative reconstruction. Contrast material: [id number]; Contrast volume: 100 ml; Contrast route: INTRAVENOUS (IV); COMPARISON: No relevant prior studies available. FINDINGS: Brain: Unremarkable white matter. No mass effect. No abnormal enhancing lesions. Cerebral ventricles: Unremarkable. No ventriculomegaly. Bones/joints: Unremarkable. No acute fracture. Paranasal sinuses: Visualized sinuses are unremarkable. No fluid levels. Mastoid air cells: Visualized mastoid air cells are well aerated. Soft tissues: Unremarkable. IMPRESSION: No acute intracranial abnormality. PROCEDURE INFORMATION: Exam: CT Neck With Contrast Exam date and time: 05/07/2025 8:40 PM Age: 44 years old Clinical indication: Other: Scalp swelling; Mass, lump, or swelling in neck; Left mouth and neck swelling, swelling scalp TECHNIQUE: Imaging protocol: Computed tomography of the neck with contrast. Radiation optimization: All CT scans at this facility use at least one of these dose optimization techniques: automated exposure control; mA and/or kV adjustment per patient size (includes targeted exams where dose is matched to clinical indication); or iterative reconstruction. Contrast material: [id number]; Contrast volume: 100 ml; Contrast route: INTRAVENOUS (IV); COMPARISON: No relevant prior studies available. FINDINGS: Salivary glands: Normal. Glands are normal in size. Pharynx: Unremarkable. No significant tonsillar enlargement. Larynx: Unremarkable. Epiglottis is normal. Thyroid: Normal. No enlarged or calcified nodules. Trachea: Visualized trachea is unremarkable. Lungs: Unremarkable as visualized. Lymph nodes: Nonenlarged submandibular lymph nodes are noted. Bones/joints: See Soft tissues finding. Soft tissues: Diffuse soft tissue edema is identified involving the soft tissues adjacent to the left maxilla and mandible. In addition there is an area of enhancement identified adjacent to the left mandible in the soft tissues measuring 2.8 cm x 1.2 cm. Findings are consistent with the presence of a phlegmon with surrounding cellulitis. IMPRESSION: Phlegmon identified in the soft tissues adjacent to the left mandible and maxilla with surrounding soft tissue edema/cellulitis. Dictated and Authenticated by: Nav Kirk MD. Orderin Luli Pickett MD
[2025-05-07 22:13] LABS: Lab Add On Test DONE
[2025-05-07] MEDS: AMPICILLIN/SULBACTAM 3 GM in Normal Saline 100 ML IVPB (22:53)
--- NOTE | 2025-05-07 22:55 | W.PM.HP.N ---
Date of service: 05/07/25 Time of Service: 22:55 Assessment and Plan Assessment and plan (1) Severe sepsis: Status: Acute Assessment and plan: - Patient met criteria for severe sepsis with initial temperature of 38.2 ?C, heart rate of 95, source of infection being left submandibular cellulitis versus Mon, as well as scalp cellulitis, and initial lactic acid of 3.3 - Patient was given 1 L of normal saline, with repeat lactic improved below 2 - Was initially started on vancomycin and given dexamethasone for mandibular swelling - Case was discussed with the [facility] who recommended continuing vancomycin, initiating Unasyn, continuing dexamethasone 8 mg to 8 hours. They also stated that if patient's condition worsens to call them back for additional recommendations - [facility] also stated that if patient's condition improves on current regimen, she could ultimately be discharged with p.o. Augmentin - Monitor patient's clinical improvement, follow-up a.m. CBC (2) Cellulitis of face: Status: Acute Assessment and plan: - Source of infection as noted above (3) IVDU (intravenous drug user): Status: Acute Assessment and plan: - History of, patient initially show stated she is not currently using, though admitted later to her MedSurg nurse that she used crack/fentanyl a few days ago after the infection started due to the pain - Will continue home methadone once dose is confirmed by pharmacy in the morning History of Present Illness History of Present Illness Chief Complaint: worsening infection Narrative: 44-year-old female with a past medical history of IV drug use currently on methadone presents the emergency department with worsening infection of her scalp and neck. Patient states that she began to notice swelling on the left side of her face and neck about 3 to 4 days ago that has gotten progressively worse. She reports history of IV drug use though initially going she is not currently using (she later reported to her MedSurg nurse that she recently used crack and probably because of the pain from the infection), and is on methadone though she does live with people who apparently have active MRSA infections. She also has multiple lesions to her scalp small lesions along her face and is on her legs. She states that she is febrile denies any headache, lightheadedness, dizziness, chest pain, shortness of breath, nausea vomiting or diarrhea. In the emergency department the patient was noted as having initial temperature of 38.2 ?C, heart rate of 95, with swelling of her left maxilla and difficulty opening her mouth as well as a painful lesion in occipital region of her scalp. CBC was unremarkable, as was CMP, but initial lactic was 3.3 for which patient received 1 L of normal saline was also started on vancomycin and given 10 mg of IV dexamethasone. CT head and neck with contrast was performed and showed phlegmon of the soft tissues adjacent to the left mandible and maxilla with surrounding soft tissue edema/cellulitis. These findings were discussed with [facility] who recommended initiating Unasyn, continuing dexamethasone 8 mg every 8 hours, continue to monitor patient's progress. They did not feel the patient required transfer at this time as no identifiable abscess was seen thus no procedure required. They did state that if the patient continued to improve with the aforementioned medication regimen that she could be discharged with p.o. Augmentin. At which time emergency room provider paged hospitalist for admission for patient with severe sepsis secondary to cellulitis. Review of Systems All systems reviewed & are unremarkable except as noted in HPI and below PFSH All Active Problems (Updated 05/07/25 @ 23:19 by Nieves Rockwell NP) Sepsis (Acute) IVDU (intravenous drug user) (Acute) Severe sepsis (Acute) Submandibular space infection (Acute) Cellulitis of face (Acute) Insect bite (Acute) Unwanted fertility (Acute 11/02/15) l/s tubal scheduled 11/04/15 Supervision of normal IUP (intrauterine ) in multigravida (Acute 04/16/15) Tobacco abuse (Acute 03/18/18) PTSD (post-traumatic stress disorder) (Acute 03/18/18) Anxiety (Acute 06/29/16) Adjustment disorder with mixed anxiety and depressed mood (Acute 11/02/16) Medical History Anxiety Umbilical hernia Surgical History Ligation of fallopian tube Repair of umbilical hernia (08/23/16) incarcerated Family History Mother Essential hypertension Hyperlipidemia Father Alcohol abuse Mental disorder Depression Brother Personal history of malignant neoplasm rare brain cancer in infancy, resolved Grandfather , [place] at age 41. Myocardial infarction Social History Smoking/Tobacco Use Status: Current every day Tobacco Type: cigarettes Smoking risk assessment performed?: Yes Alcohol Intake: current Alcohol Intake frequency: a few times a month Drug use: Current Sobriety Substance use type: marijuana, crack/cocaine, heroin, amphetamines, hallucinogens, tranquilizers, sedatives, opiates, painkillers, club/low emission automobile designer drugs, IV drugs, methamphetamine and prescription drug Housing: house Do you feel safe at home: Yes Do you feel safe in your relationship?: Yes Meds Allergies and Home Medications Allergies Allergy/AdvReac Type Severity Reaction Status Date / Time No Known Allergies Allergy Verified 05/07/25 19:47 Home Medications ?Medication ?Instructions ?Recorded ?Confirmed ?Type sulfamethoxazole 800 1 tab PO BID #14 tabs 06/28/22 Rx mg-trimethoprim 160 mg tablet (Bactrim DS) methadone 10 mg/mL oral concentrate 150 mg PO DAILY 05/07/25 05/07/25 History Exam Narrative Exam Narrative: Fatigued appearing female appearing older than stated age, laying in bed in no acute distress, ANO x 4, heart regular rhythm, lungs good auscultation bilaterally, abdomen soft, nontender, nondistended, notable swelling and tenderness of the left mandible, tenderness to posterior scalp Results Labs 05/07/25 20:06 05/07/25 20:06 Labs: Laboratory Results - last 24 hr 05/07/25 05/07/25 05/07/25 20:06 20:45 22:08 WBC 9.47 RBC 3.75 L Hgb 10.8 L Hct 33.3 L MCV 89 MCH 28.8 MCHC 32.4 RDW 13.2 Plt Count 178 MPV 10.2 Immature Gran % 0.2 Neutrophils % 96.6 Lymphocytes % 2.7 Monocytes % 0.3 Eosinophils % 0.1 Basophils % 0.1 Nucleated RBC % 0.0 Absolute Neutrophils 9.14 H Absolute Lymphocytes 0.26 L Absolute Monocytes 0.03 L Absolute Eosinophils 0.01 Absolute Basophils 0.01 ESR 13 VBG Lactate 3.3 H* 0.6 Sodium 137 Potassium 3.9 Chloride 102 Carbon Dioxide 27.2 Anion Gap 7.8 BUN 17 Creatinine 1.0 Est GFR (CKD-EPI 2020) 70.80 Glucose 127 H Calcium 8.7 Magnesium 2.0 Total Bilirubin 0.4 AST 890 H ALT 304 H Alkaline Phosphatase 230 H C-Reactive Protein 2.08 H Total Protein 7.1 Albumin 3.4 Add-On Test Request DONE Last Vital Signs Temp 100.7 F H 05/07/25 19:45 Pulse 87 05/07/25 21:18 Resp 18 05/07/25 19:42 BP 122/60 05/07/25 21:18 Pulse Ox 95 05/07/25 19:42 Time Spent Time spent with Patient: >75 minutes Time was spent: preparing to see the patient(eg.review tests), obtaining and/or reviewing separately otained hiistory, ordering medications,tests, procedures, referring, communicating with other health healthcare network pricing consultant, indepentently interpreting results, counseling the patient and care coordination
[2025-05-07 23:24] LABS: MRSA PCR Positive (Negative)
--- NOTE | 2025-05-07 23:47 | W.PC.ACHO ---
Registration Status: REG ER Primary Language: Preferred Language: Ukrainian ED Information & Data Chief Complaint Cellulitis 05/07/25 20:06 Triage Note PT states that she has had a 05/07/25 19:42 skin infection on several parts of her body that started 2 days ago. PT states that she has chills Medical / Surgical History (Last Reviewed 07/13/22 @ 00:05 by Prasanna King MD) Umbilical hernia Anxiety (Last Reviewed 07/13/22 @ 00:05 by Prasanna King MD) Ligation of fallopian tube Repair of umbilical hernia (08/23/16) Most Recent Vital Signs Temperature 38.2 C H 05/07/25 19:45 Temperature Source Oral 05/07/25 19:42 Pulse 71 05/07/25 23:45 Respiratory Rate 18 05/07/25 19:42 Blood Pressure 111/60 05/07/25 23:45 Blood Pressure Mean 77 05/07/25 23:45 Pulse Oximetry 98 05/07/25 23:45 Oxygen Delivery Method Room Air 05/07/25 19:42 Oxygen Flow Rate 0 05/07/25 19:42 Pain Level 6 05/07/25 19:42 Allergies No Known Allergies Allergy (Verified 05/07/25 19:47) Active Medications Generic Name Dose Route Start Last Admin Trade Name Freq PRN Reason Stop Dose Admin Iohexol 100 ml 05/07/25 21:00 05/07/25 20:48 Omnipaque 350 Mg/Ml 100 Ml Btl IJ 06/06/25 23:59 100 ml DIRECTED RANCHO Administration Sodium Chloride 50 ml 05/07/25 20:45 05/07/25 20:45 Normal Saline - Diluent 50 Ml Vial IJ 50 ml .FOR DI USE RANCHO Administration IV IV Catheter Type [Left Saline Lock Antecubital] IV Catheter Gauge [Left 18 Antecubital] Diagnostics 05/07/25 05/07/25 05/07/25 Range/Units 22:08 20:45 20:37 WBC (4.4-10.8) 10^3/uL RBC (3.93-5.22) 10^6/uL Hgb (11.2-15.7) g/dL Hct (36.0-46.0) % MCV (80-95) fL MCH (27.0-33.0) pg MCHC (32.0-36.0) % RDW (11.7-14.6) % Plt Count (130-400) 10^3/uL MPV (8.0-11.0) fL Immature Gran % % Neutrophils % % Lymphocytes % % Monocytes % % Eosinophils % % Basophils % % Nucleated RBC % (0.0-0.3) % Absolute Neutrophils (1.2-6.7) 10^3/uL Absolute Lymphocytes (1.2-3.4) 10^3/uL Absolute Monocytes (0.1-0.8) 10^3/uL Absolute Eosinophils (0.0-0.7) 10^3/uL Absolute Basophils (0.0-0.2) 10^3/uL ESR (0-20) mm/hr VBG Lactate 0.6 (<or=2.0) mmol/L Sodium (136-145) mmol/L Potassium (3.5-5.1) mmol/L Chloride (98-107) mmol/L Carbon Dioxide (21.0-32.0) mmol/L Anion Gap (3-11) mmol/L BUN (7-18) mg/dL Creatinine (0.55-1.02) mg/dL Est GFR (CKD-EPI 2020) (mL/min/1.73m2) Glucose (74-106) mg/dL Calcium (8.5-10.1) mg/dL Magnesium (1.8-2.4) mg/dL Total Bilirubin (0.2-1.0) mg/dL AST (15-37) U/L ALT (14-59) U/L Alkaline Phosphatase (46-116) U/L C-Reactive Protein (<or=0.5) mg/dL Total Protein (6.4-8.2) g/dL Albumin (3.4-5.0) g/dL Hepatitis A IgM Ab Pending Hep Bs Antigen Pending Hep B Core Total Ab Pending Hepatitis C Antibody Pending MRSA (TEM-PCR) Positive A (Negative) Add-On Test Request DONE 05/07/25 Range/Units 20:06 WBC 9.47 (4.4-10.8) 10^3/uL RBC 3.75 L (3.93-5.22) 10^6/uL Hgb 10.8 L (11.2-15.7) g/dL Hct 33.3 L (36.0-46.0) % MCV 89 (80-95) fL MCH 28.8 (27.0-33.0) pg MCHC 32.4 (32.0-36.0) % RDW 13.2 (11.7-14.6) % Plt Count 178 (130-400) 10^3/uL MPV 10.2 (8.0-11.0) fL Immature Gran % 0.2 % Neutrophils % 96.6 % Lymphocytes % 2.7 % Monocytes % 0.3 % Eosinophils % 0.1 % Basophils % 0.1 % Nucleated RBC % 0.0 (0.0-0.3) % Absolute Neutrophils 9.14 H (1.2-6.7) 10^3/uL Absolute Lymphocytes 0.26 L (1.2-3.4) 10^3/uL Absolute Monocytes 0.03 L (0.1-0.8) 10^3/uL Absolute Eosinophils 0.01 (0.0-0.7) 10^3/uL Absolute Basophils 0.01 (0.0-0.2) 10^3/uL ESR 13 (0-20) mm/hr VBG Lactate 3.3 H* (<or=2.0) mmol/L Sodium 137 (136-145) mmol/L Potassium 3.9 (3.5-5.1) mmol/L Chloride 102 (98-107) mmol/L Carbon Dioxide 27.2 (21.0-32.0) mmol/L Anion Gap 7.8 (3-11) mmol/L BUN 17 (7-18) mg/dL Creatinine 1.0 (0.55-1.02) mg/dL Est GFR (CKD-EPI 2020) 70.80 (mL/min/1.73m2) Glucose 127 H (74-106) mg/dL Calcium 8.7 (8.5-10.1) mg/dL Magnesium 2.0 (1.8-2.4) mg/dL Total Bilirubin 0.4 (0.2-1.0) mg/dL AST 890 H (15-37) U/L ALT 304 H (14-59) U/L Alkaline Phosphatase 230 H (46-116) U/L C-Reactive Protein 2.08 H (<or=0.5) mg/dL Total Protein 7.1 (6.4-8.2) g/dL Albumin 3.4 (3.4-5.0) g/dL Hepatitis A IgM Ab Hep Bs Antigen Hep B Core Total Ab Hepatitis C Antibody MRSA (TEM-PCR) (Negative) Add-On Test Request 05/07/25 20:37 Wound Culture - Pending Lip - Left Lower Gram Stain - Final 05/07/25 20:36 Blood Culture - Pending Blood 05/07/25 20:06 Blood Culture - Pending Blood [id number] Documentation POC Urine Test Start: 05/07/25 19:55 Freq: .Urine Test Status: Active Protocol: Activity Type Activity Date Activity User E-sign Co-sign Detail Recorded Client Recorded Date Recorded By Document 05/07/25 20:24 PA [id number] 05/07/25 20:25 PA Intake and Output - 24 Hour Total 05/07/25 19:21 thru 05/07/25 23:25 Intake Total 1450 Balance 1450 Weight 64.365 kg Intake: IV 1450 Falls Risk Assessment History of Falls No History 05/07/25 19:45 Contributing Factors No Factors 05/07/25 19:45 Ambulatory Aids Independent 05/07/25 19:45 Tubes/Lines None 05/07/25 19:45 Gait Evaluation No gait disturbance 05/07/25 19:45 Cognition No cognitive impairment 05/07/25 19:45 Fall Total Score 0 05/07/25 19:45 Level of Risk Standard/Low Risk 05/07/25 19:45 Problems (Last Reviewed 07/13/22 @ 00:05 by Prasanna King MD) Sepsis (Acute) IVDU (intravenous drug user) (Acute) Severe sepsis (Acute) Submandibular space infection (Acute) Cellulitis of face (Acute) v v v v v v v v v Sending and/or Receiving Nurses: Please use comment section below to note any information pertinent to the patient hand-off not included above. Information / Comments: Report received from: Jordi DUDLEY
[2025-05-08 00:04] VITALS: BP 111/64; PULSE 78; RESP 20; TEMP 36.5; O2SAT 98
[2025-05-08] MEDS: AMPICILLIN/SULBACTAM 3 GM in Normal Saline 100 ML IVPB ×3 (06:51→19:02)
[2025-05-08] MEDS: Dexamethasone 4 MG/ML VIAL 8 MG IVP ×3 (06:51→23:36)
[2025-05-08] MEDS: Acetaminophen 325 MG TAB 650 MG PO ×3 (07:01→19:01)
[2025-05-08 07:29] LABS: HCT 37.1 % (36.0-46.0); HGB 12.1 g/dL (11.2-15.7); MCH 29.4 pg (27.0-33.0); MCHC 32.6 % (32.0-36.0); MCV 90 fL (80-95); MPV 10.1 fL (8.0-11.0); Platelet Count 218 10^3/uL (130-400); RBC 4.11 10^6/uL (3.93-5.22); RDW 13.3 % (11.7-14.6); RDW-SD 44.0 fL; WBC 22.73 10^3/uL (4.4-10.8)
[2025-05-08] MEDS: Normal Saline Flush 10 ML SYR IVP ×4 (07:31→23:36)
[2025-05-08 07:36] VITALS: BP 111/72; PULSE 54; RESP 16; TEMP 36.5; O2SAT 99
[2025-05-08 07:45] LABS: Anion Gap 8.8 mmol/L (3-11); BUN 12 mg/dL (7-18); CO2 30.2 mmol/L (21.0-32.0); Calcium 9.4 mg/dL (8.5-10.1); Chloride 104 mmol/L (98-107); Estimated GFR 92.54 (mL/min/1.73m2); Glucose 137 mg/dL (74-106); Magnesium 2.6 mg/dL (1.8-2.4); Potassium 4.6 mmol/L (3.5-5.1); Sodium 143 mmol/L (136-145)
[2025-05-08] MEDS: Methadone Liquid 10 MG/ML 150 MG PO (09:16)
[2025-05-08] MEDS: Enoxaparin 40 MG/0.4 ML SYR SC (10:26)
[2025-05-08 11:11] VITALS: BP 101/77; PULSE 54; RESP 16; TEMP 36.5; O2SAT 99
--- NOTE | 2025-05-08 14:58 | W.PM.PROGNOT ---
Date of Service Date of service: 05/08/25 Time of Service: 08:00 Assessment and Plan Assessment and plan (1) Severe sepsis: Status: Resolved Assessment and plan: Septic on admission, given fluids and antibiotics (2) Cellulitis of face: Status: Acute Assessment and plan: Submandibular phlegmon and scalp cellulitis Vancomycin and dexamethasone given in ED [facility] recommending continued vanc, start unasyn, continue dexamethasone, likely DC on augmentin if improving No intervention planned Follow CBC, CMP (3) IVDU (intravenous drug user): Status: Acute Assessment and plan: UDS not done, patient admitted to crack and fentanyl Continue home methadone when confirmed Subjective Subjective Interval history since last seen: Ms Betancourt is resting comfortably. Pain well controlled at this time. Exam Narrative Exam Narrative: General: This is a chronically ill-appearing woman in no acute distress HEENT: left jaw tenderness, posterior scalp tenderness CV: RRR Resp: CTAB Abd: NTND +NBS MSK: voluntary motion x4 Neuro: Awake, alert, no focal deficits Objective Last Vital Signs Temp 36.5 C 05/08/25 11:11 Pulse 54 L 05/08/25 11:11 Resp 16 05/08/25 11:11 BP 101/77 05/08/25 11:11 Pulse Ox 99 05/08/25 11:11 Laboratory Results - last 24 hr 05/07/25 05/07/25 05/07/25 20:06 20:37 20:45 WBC 9.47 RBC 3.75 L Hgb 10.8 L Hct 33.3 L MCV 89 MCH 28.8 MCHC 32.4 RDW 13.2 Plt Count 178 MPV 10.2 Immature Gran % 0.2 Neutrophils % 96.6 Lymphocytes % 2.7 Monocytes % 0.3 Eosinophils % 0.1 Basophils % 0.1 Nucleated RBC % 0.0 Absolute Neutrophils 9.14 H Absolute Lymphocytes 0.26 L Absolute Monocytes 0.03 L Absolute Eosinophils 0.01 Absolute Basophils 0.01 ESR 13 VBG Lactate 3.3 H* Sodium 137 Potassium 3.9 Chloride 102 Carbon Dioxide 27.2 Anion Gap 7.8 BUN 17 Creatinine 1.0 Est GFR (CKD-EPI 2020) 70.80 Glucose 127 H Calcium 8.7 Magnesium 2.0 Total Bilirubin 0.4 AST 890 H ALT 304 H Alkaline Phosphatase 230 H C-Reactive Protein 2.08 H Total Protein 7.1 Albumin 3.4 MRSA (TEM-PCR) Positive A Add-On Test Request DONE 05/07/25 05/08/25 22:08 07:10 WBC 22.73 H RBC 4.11 Hgb 12.1 Hct 37.1 MCV 90 MCH 29.4 MCHC 32.6 RDW 13.3 Plt Count 218 MPV 10.1 Immature Gran % Neutrophils % Lymphocytes % Monocytes % Eosinophils % Basophils % Nucleated RBC % Absolute Neutrophils Absolute Lymphocytes Absolute Monocytes Absolute Eosinophils Absolute Basophils ESR VBG Lactate 0.6 Sodium 143 Potassium 4.6 Chloride 104 Carbon Dioxide 30.2 Anion Gap 8.8 BUN 12 Creatinine 0.8 Est GFR (CKD-EPI 2020) 92.54 Glucose 137 H Calcium 9.4 Magnesium 2.6 H Total Bilirubin AST ALT Alkaline Phosphatase C-Reactive Protein Total Protein Albumin MRSA (TEM-PCR) Add-On Test Request Time Spent with Patient Time Spent with Patient: 25-34 minutes Time was spent: preparing to see the patient(eg.review tests), obtaining and/or reviewing separately otained hiistory, ordering medications,tests, procedures, referring, communicating with other health health care assistant, indepentently interpreting results, counseling the patient and care coordination
--- NOTE | 2025-05-08 18:33 | PDOC.CMIN ---
Date of service: 05/08/25 Time of Service: 17:30 Care Management Initial Assmt Initial Assessment Reason for Hospitalization: cellulitis, submandibular space infection, sepsis Functional Status/Living Situation Patient Presentation: Skylar presented to the ED yesterday with c/o left sided neck and facial swelling. She was noted to have a fever. She was diagnosed with left submandibular cellulitis and scalp cellulitis. Her case was discussed with [facility]. Skylar was sleeping each time CM went to see her today. She was awake at dinner time, and CM went to visit. Skylar was sitting up in the bed, just finishing her dinner. She was polite, but didn't want to share much with CM. Skylar stated that she would not need a work note. She will need a methadone last dose letter, however. Skylar has no one listed on her HIPAA form. Town of Residence: [facility] Significant Other/Family: Local (friend, Marcin is listed as emergency contact.) Employment Status: Unemployed Instrumental Activities of Daily Living (ADLs): Independent Advance Directives Advance Directives: Do you have an Advance Directive: N 02/17/25, 14:19 AD On File at [facility]: N 02/17/25, 14:19 Date Asked 05/07/25 05/07/25, 23:20 AD Date Reviewed 05/07/25 05/07/25, 19:27 COLST On File at [facility] COLST Date Scanned Code Status Resuscitation Status Full Code Insurance Coverage/Financial Issues Insurance: Medicaid of [place] - [id number] Care Team Visit Care Team Role Provider Type Darrell Kirkland MD MD [facility] STAFF PHYSICIAN Yuliya Horne NP Primary Care Provider NURSE PRACTITIONER Nieves Rockwell NP Emergency Provider NURSE PRACTITIONER Blaine Tran MD Admit Provider [facility] STAFF PHYSICIAN Attending Provider Discharge Potential Discharge Needs: PCP F/U Appt Anticipated Barriers to Discharge: None Identified Patient/Family Education Needs: Review discharge instructions, discuss Ask Me Three Transportation: Private vehicle Plan: Anticipate that Skylar will discharge home with no new services. She will f/u with her PCP and continue per her plan of care. Skylar will be given a last dose methadone letter. Skylar will transport home in a private vehicle. CM will continue to follow. Social Determinants of Health Screening Will the Patient Participate in the Screening?: Declined to provide If for any reason you need help with day-to-day activities such as bathing, preparing meals, shopping, managing finances, etc., do you get the help you need?: I could use a little more help Health Related Social Needs Health related social needs: problems with daily activities (Z73.9) Health related social needs details: pt reports she feels like she has secure housing but any other problems transportation food ect. pt mouth hurts and she didnt want to complete the list PFSH All Active Problems (Updated 05/07/25 @ 23:19 by Nieves Rockwell NP) Sepsis (Acute) IVDU (intravenous drug user) (Acute) Severe sepsis (Acute) Submandibular space infection (Acute) Cellulitis of face (Acute) Insect bite (Acute) Unwanted fertility (Acute 11/02/15) l/s tubal scheduled 11/04/15 Supervision of normal IUP (intrauterine ) in multigravida (Acute 04/16/15) Tobacco abuse (Acute 03/18/18) PTSD (post-traumatic stress disorder) (Acute 03/18/18) Anxiety (Acute 06/29/16) Adjustment disorder with mixed anxiety and depressed mood (Acute 11/02/16) Medical History Anxiety Umbilical hernia Surgical History Ligation of fallopian tube Repair of umbilical hernia (08/23/16) incarcerated Family History Mother Essential hypertension Hyperlipidemia Father Alcohol abuse Mental disorder Depression Brother Personal history of malignant neoplasm rare brain cancer in infancy, resolved Grandfather , [place] at age 41. Myocardial infarction Social History Smoking/Tobacco Use Status: Current every day Tobacco Type: cigarettes Smoking risk assessment performed?: Yes Alcohol Intake: current Alcohol Intake frequency: a few times a month Drug use: Current Sobriety Substance use type: marijuana, crack/cocaine, heroin, amphetamines, hallucinogens, tranquilizers, sedatives, opiates, painkillers, club/residential green building designer drugs, IV drugs, methamphetamine and prescription drug Housing: house Do you feel safe at home: Yes Do you feel safe in your relationship?: Yes
[2025-05-08 19:47] VITALS: BP 125/78; PULSE 72; RESP 16; TEMP 36.2; O2SAT 97
[2025-05-08 20:01] LABS: Hepatitis A Antibody IgM Negative (Negative); Hepatitis C Ab w Rflx HCV PCR Reactive (Negative)
[2025-05-08] MEDS: VANCOMYCIN/WATER (PEG) 1.5 GM/300 ML BAG IVPB (20:47)
[2025-05-08 22:25] VITALS: BP 106/71; PULSE 60; RESP 19; TEMP 36.5; O2SAT 98
[2025-05-09] MEDS: AMPICILLIN/SULBACTAM 3 GM in Normal Saline 100 ML IVPB ×4 (00:05→21:12)
[2025-05-09 03:44] VITALS: BP 112/60; PULSE 54; RESP 18; TEMP 36.3; O2SAT 97
[2025-05-09] MEDS: Dexamethasone 4 MG/ML VIAL 8 MG IVP ×3 (06:49→21:11)
[2025-05-09] MEDS: Normal Saline Flush 10 ML SYR IVP ×4 (06:49→21:13)
[2025-05-09 07:52] LABS: Vancomycin, Random 8.2 ug/mL
[2025-05-09] MEDS: Methadone Liquid 10 MG/ML 150 MG PO (08:47)
[2025-05-09] MEDS: Enoxaparin 40 MG/0.4 ML SYR SC (08:47)
[2025-05-09 08:53] VITALS: BP 125/76; PULSE 82; RESP 16; TEMP 36.5; O2SAT 98
[2025-05-09] MEDS: VANCOMYCIN/WATER (PEG) 1.25 GM/250 ML BAG IV ×2 (10:17→22:13)
[2025-05-09] MEDS: Acetaminophen 325 MG TAB 650 MG PO ×2 (10:25→21:11)
[2025-05-09 11:19] VITALS: BP 140/81; PULSE 82; RESP 16; TEMP 36.8; O2SAT 97
--- NOTE | 2025-05-09 16:42 | W.PM.PROGNOT ---
Date of Service Date of service: 05/09/25 Time of Service: 12:00 Assessment and Plan Assessment and plan (1) Severe sepsis: Status: Resolved Assessment and plan: Septic on admission, given fluids and antibiotics (2) Cellulitis of face: Status: Acute Assessment and plan: Submandibular phlegmon and scalp cellulitis Vancomycin and dexamethasone given in ED [facility] recommending continued vanc, start unasyn, continue dexamethasone, likely DC on augmentin if improving No intervention planned Follow CBC, CMP Follow cultures (3) IVDU (intravenous drug user): Status: Acute Assessment and plan: UDS not done, patient admitted to crack and fentanyl Continue home methadone when confirmed Subjective Subjective Interval history since last seen: Ms Betancourt is resting comfortably. Pain well controlled at this time. Exam Narrative Exam Narrative: General: This is a chronically ill-appearing woman in no acute distress HEENT: left jaw tenderness, posterior scalp tenderness CV: RRR Resp: CTAB Abd: NTND +NBS MSK: voluntary motion x4 Neuro: Awake, alert, no focal deficits Objective Last Vital Signs Temp 36.8 C 05/09/25 11:19 Pulse 82 05/09/25 11:19 Resp 16 05/09/25 11:19 BP 140/81 05/09/25 11:19 Pulse Ox 97 05/09/25 11:19 Laboratory Results - last 24 hr 05/09/25 07:15 Random Vancomycin 8.2 Time Spent with Patient Time Spent with Patient: 25-34 minutes Time was spent: preparing to see the patient(eg.review tests), obtaining and/or reviewing separately otained hiistory, ordering medications,tests, procedures, referring, communicating with other health healthcare technician, indepentently interpreting results, counseling the patient and care coordination
[2025-05-09 20:08] VITALS: BP 122/76; PULSE 55; RESP 20; TEMP 36.2; O2SAT 98
[2025-05-09 23:33] VITALS: BP 119/75; PULSE 53; RESP 20; TEMP 37; O2SAT 97
[2025-05-10] MEDS: AMPICILLIN/SULBACTAM 3 GM in Normal Saline 100 ML IVPB ×4 (02:56→19:58)
[2025-05-10] MEDS: Dexamethasone 4 MG/ML VIAL 8 MG IVP ×3 (06:19→22:46)
[2025-05-10 06:55] LABS: Vancomycin, Random 11.3 ug/mL
[2025-05-10 08:17] VITALS: BP 119/86; PULSE 55; RESP 17; TEMP 36.5; O2SAT 99
[2025-05-10] MEDS: Methadone Liquid 10 MG/ML 150 MG PO (08:36)
[2025-05-10] MEDS: Enoxaparin 40 MG/0.4 ML SYR SC (08:38)
[2025-05-10] MEDS: Normal Saline Flush 10 ML SYR IVP ×3 (08:40→19:59)
[2025-05-10] MEDS: Acetaminophen 325 MG TAB 650 MG PO (08:48)
[2025-05-10] MEDS: VANCOMYCIN/WATER (PEG) 1.25 GM/250 ML BAG IV ×2 (09:19→22:41)
--- NOTE | 2025-05-10 16:01 | PGE_ITS ---
Date of Service Date of service: 05/10/25 Time of Service: 11:00 Assessment and Plan Assessment and plan (1) Severe sepsis: Status: Resolved Assessment and plan: Septic on admission, given fluids and antibiotics (2) Cellulitis of face: Status: Acute Assessment and plan: Submandibular phlegmon and scalp cellulitis Vancomycin and dexamethasone given in ED [facility] recommending continued vanc, start unasyn, continue dexamethasone, likely DC on augmentin if improving No intervention planned Follow CBC, CMP Follow cultures (3) IVDU (intravenous drug user): Status: Acute Assessment and plan: UDS not done, patient admitted to crack and fentanyl Continue home methadone when confirmed Subjective Subjective Interval history since last seen: Ms Betancourt is comfortable in bed. She is feeling better. Exam Narrative Exam Narrative: General: This is a chronically ill-appearing woman in no acute distress HEENT: left jaw tenderness, posterior scalp tenderness CV: RRR Resp: CTAB Abd: NTND +NBS MSK: voluntary motion x4 Neuro: Awake, alert, no focal deficits Objective Last Vital Signs Temp 36.5 C 05/10/25 08:17 Pulse 55 L 05/10/25 08:17 Resp 17 05/10/25 08:17 BP 119/86 05/10/25 08:17 Pulse Ox 99 05/10/25 08:17 Laboratory Results - last 24 hr 05/10/25 06:06 Random Vancomycin 11.3 Time Spent with Patient Time Spent with Patient: 25-34 minutes Time was spent: preparing to see the patient(eg.review tests), obtaining and/or reviewing separately otained hiistory, ordering medications,tests, procedures, referring, communicating with other health career services director, indepentently interpreting results, counseling the patient and care coordination
[2025-05-10 19:28] VITALS: BP 142/78; PULSE 66; RESP 16; TEMP 36.5; O2SAT 98
[2025-05-11] MEDS: AMPICILLIN/SULBACTAM 3 GM in Normal Saline 100 ML IVPB ×2 (03:05→08:54)
[2025-05-11] MEDS: Dexamethasone 4 MG/ML VIAL 8 MG IVP (05:52)
[2025-05-11 06:26] LABS: Abs Immature Grans 0.04 10^3/uL (0.0-0.06); HCT 34.0 % (36.0-46.0); HGB 11.3 g/dL (11.2-15.7); Immature Grans % 0.3 %; MCH 29.4 pg (27.0-33.0); MCHC 33.2 % (32.0-36.0); MCV 88 fL (80-95); MPV 10.9 fL (8.0-11.0); Platelet Count 225 10^3/uL (130-400); RBC 3.85 10^6/uL (3.93-5.22); RDW 13.4 % (11.7-14.6); RDW-SD 43.8 fL; WBC 11.61 10^3/uL (4.4-10.8)
[2025-05-11 06:51] LABS: ALT 92 U/L (14-59); AST 13 U/L (15-37); Albumin 3.0 g/dL (3.4-5.0); Alkaline Phosphatase 116 U/L (46-116); Anion Gap 5.9 mmol/L (3-11); BUN 20 mg/dL (7-18); Bilirubin, Total 0.1 mg/dL (0.2-1.0); CO2 30.1 mmol/L (21.0-32.0); Calcium 9.2 mg/dL (8.5-10.1); Chloride 102 mmol/L (98-107); Estimated GFR 112.73 (mL/min/1.73m2); Glucose 106 mg/dL (74-106); Magnesium 2.2 mg/dL (1.8-2.4); Potassium 3.9 mmol/L (3.5-5.1); Sodium 138 mmol/L (136-145); Total Protein 7.1 g/dL (6.4-8.2)
[2025-05-11 08:19] VITALS: BP 127/85; PULSE 48; RESP 17; TEMP 36.5; O2SAT 100
[2025-05-11] MEDS: Enoxaparin 40 MG/0.4 ML SYR SC (08:54)
[2025-05-11] MEDS: Methadone Liquid 10 MG/ML 150 MG PO (08:55)
[2025-05-11] MEDS: Normal Saline Flush 10 ML SYR IVP (08:55)
[2025-05-11] MEDS: VANCOMYCIN/WATER (PEG) 1.25 GM/250 ML BAG IV (09:41)
--- NOTE | 2025-05-11 10:45 | CMDISCH_ITS ---
Date of service: 05/11/25 Time of Service: 10:45 LACE Index Scoring Tool Questions: Length of Stay (in days): 4 - 6 Was the patient admitted via the E.D.?: Yes E.D. Visits: 1 Answers: Total Score: 8 Risk of Readmission: Low Risk Care Management Discharge Plan Reason for Hospitalization: Severe sepsis cellulitis Discharge Plan: Skylar will discharge home with no new services. She will f/u with her PCP and continue per her plan of care. Skylar was given a last dose methadone letter. Skylar will transport home in a private vehicle. Patient/Family Education Needs: Review of discharge instructions, activity, limitations, and plan of care. Discuss Ask Me Three. SDOH Health Related Social Needs: Health related social needs daily activities Health related social needs details pt reports she fee ls like she has secure housing but any other problems transportation food ect. pt mouth hurts and she didnt want to complete the list Health related social needs details: pt reports she feels like she has secure housing but any other problems transportation food ect. pt mouth hurts and she didnt want to complete the list
[2025-05-11 11:09] VITALS: BP 143/86; PULSE 52; RESP 18; TEMP 36.5; O2SAT 98
--- NOTE | 2025-05-11 11:33 | W.PM.DS.N ---
Date of service: 05/11/25 Time of Service: 11:33 DS: Diagnosis Discharge Diagnosis (1) Severe sepsis: Status: Resolved (2) Cellulitis of face: Status: Acute (3) IVDU (intravenous drug user): Status: Acute Discharge Plan Disposition Patient Disposition: Home Condition: Improving Discharge Details Reason For Visit: Severe sepsis cellulitis Admit Date/Time: 05/07/25 22:55 Admit Provider: Blaine Tran Attending Provider: Blaine Tran Primary Care Provider: Yuliya Horne Hospital Course Hospital Course: Patient was admitted for cellulitis and was started on appropriate antibiotics. Patient did improve and on the asked to be discharged home. I verified that the patient could not afford her antibiotics to be sent to [facility]. Patient does appear safe for discharge. Will not continue with steroids at this time as she is swallowing without difficulty. History of Present Illness History of Present Illness Chief Complaint: worsening infection Narrative: 44-year-old female with a past medical history of IV drug use currently on methadone presents the emergency department with worsening infection of her scalp and neck. Patient states that she began to notice swelling on the left side of her face and neck about 3 to 4 days ago that has gotten progressively worse. She reports history of IV drug use though initially going she is not currently using (she later reported to her [facility] nurse that she recently used crack and probably because of the pain from the infection), and is on methadone though she does live with people who apparently have active MRSA infections. She also has multiple lesions to her scalp small lesions along her face and is on her legs. She states that she is febrile denies any headache, lightheadedness, dizziness, chest pain, shortness of breath, nausea vomiting or diarrhea. In the emergency department the patient was noted as having initial temperature of 38.2 ?C, heart rate of 95, with swelling of her left maxilla and difficulty opening her mouth as well as a painful lesion in occipital region of her scalp. CBC was unremarkable, as was CMP, but initial lactic was 3.3 for which patient received 1 L of normal saline was also started on vancomycin and given 10 mg of IV dexamethasone. CT head and neck with contrast was performed and showed phlegmon of the soft tissues adjacent to the left mandible and maxilla with surrounding soft tissue edema/cellulitis. These findings were discussed with [facility] who recommended initiating Unasyn, continuing dexamethasone 8 mg every 8 hours, continue to monitor patient's progress. They did not feel the patient required transfer at this time as no identifiable abscess was seen thus no procedure required. They did state that if the patient continued to improve with the aforementioned medication regimen that she could be discharged with p.o. Augmentin. At which time emergency room provider paged hospitalist for admission for patient with severe sepsis secondary to cellulitis. Assessment and Plan Assessment and plan (1) Severe sepsis: Status: Acute Assessment and plan: - Patient met criteria for severe sepsis with initial temperature of 38.2 ?C, heart rate of 95, source of infection being left submandibular cellulitis versus Mon, as well as scalp cellulitis, and initial lactic acid of 3.3 - Patient was given 1 L of normal saline, with repeat lactic improved below 2 - Was initially started on vancomycin and given dexamethasone for mandibular swelling - Case was discussed with the [facility] who recommended continuing vancomycin, initiating Unasyn, continuing dexamethasone 8 mg to 8 hours. They also stated that if patient's condition worsens to call them back for additional recommendations - [facility] also stated that if patient's condition improves on current regimen, she could ultimately be discharged with p.o. Augmentin - Monitor patient's clinical improvement, follow-up a.m. CBC (2) Cellulitis of face: Status: Acute Assessment and plan: - Source of infection as noted above (3) IVDU (intravenous drug user): Status: Acute Assessment and plan: - History of, patient initially show stated she is not currently using, though admitted later to her [facility] nurse that she used crack/fentanyl a few days ago after the infection started due to the pain - Will continue home methadone once dose is confirmed by pharmacy in the morning CT head/face 05/07/25 IMPRESSION: 1. No acute intracranial findings. 2. Soft tissue phlegmon/abscess in the left-sided facial soft tissues adjacent left side of the mandible. There is overlying subcutaneous edema and cellulitis. There is no gas in the soft tissues. Home Meds and New Rx's Prescriptions: No Action methadone 10 mg/mL concentrate 150 mg PO DAILY sulfamethoxazole-trimethoprim [Bactrim DS] 800-160 mg tablet 1 tab PO BID Qty: 14 0RF Patient Comments: Rx complete Discharge Instructions Stand Alone Forms: Nursing Discharge Form Referrals: Yuliya Horne NP [Primary Care Provider, Medicine] - 05/22/25 9:00 am Activity:: Activity as Tolerated Equipment/Supplies:: No Equipment Needed Diet:: As Tolerated Discharge Orders Discharge Orders: Discharge Order (Routine); Ordered 05/11/25 Ordered By: Maurice Garzon DS: Summary Time Spent with Patient providing and/or coordinating discharge services: Less than 30 minutes Status at Discharge Functional status at discharge: independent ambulation Overall status at discharge: patient is back to baseline Mental Status: mental status grossly normal Speech and Movement: speech and movement normal Mood: congruent mood Affect: normal affect Quality:SDOH Health Related Social Needs: Health related social needs daily activities Health related social needs details pt reports she feels like she has secure housing but any other problems transportation food ect. pt mouth hurts and she didnt want to complete the list Health related social needs details: pt reports she feels like she has secure housing but any other problems transportation food ect. pt mouth hurts and she didnt want to complete the list Exam Narrative Exam Narrative: General: This is a chronically ill-appearing woman in no acute distress HEENT: left jaw tenderness, posterior scalp tenderness CV: RRR Resp: CTAB Abd: NTND +NBS MSK: voluntary motion x4 Neuro: Awake, alert, no focal deficits Psych Mental Status: mental status grossly normal Speech and Movement: speech and movement normal Mood: congruent mood Affect: normal affect DS: Data Vitals/I&O Vitals and I&O: Vital Signs Temperature 36.5 C 05/11/25 11:09 Temperature Source Tympanic 05/11/25 11:09 Pulse 52 L 05/11/25 11:09 Pulse Rhythm Regular 05/08/25 00:04 Respiratory Rate 18 05/11/25 11:09 Respiratory Effort Normal, Non-Labored 05/08/25 00:04 Respiratory Depth Normal 05/08/25 00:04 Respiratory Pattern Normal 05/08/25 00:04 Blood Pressure 143/86 H 05/11/25 11:09 Blood Pressure Mean 105 05/11/25 11:09 Pulse Oximetry 98 05/11/25 11:09 Oxygen Delivery Method Room Air 05/11/25 11:09 Oxygen Flow Rate 0 05/11/25 11:09 Pain Level 0 05/11/25 08:19 Comment patient asleep and did not want vitals 05/11/25 03:01 Intake & Output 05/10/25 05/10/25 05/11/25 11:59 23:59 11:59 Intake Total 950 / 2150 1200 / 2150 950 / 950 Balance 950 / 2150 1200 / 2150 950 / 950 Intake: IV 450 / 650 200 / 650 450 / 450 Oral 500 / 1500 1000 / 1500 500 / 500 Other: Comment voiding independent pT stated she voided. Data Completed and Pending Labs on day of discharge: Labs from last 24 hours 05/11/25 05/07/25 06:15 22:08 WBC 11.61 H RBC 3.85 L Hgb 11.3 Hct 34.0 L MCV 88 MCH 29.4 MCHC 33.2 RDW 13.4 Plt Count 225 MPV 10.9 Immature Gran % 0.3 Neutrophils % 87.8 Lymphocytes % 7.1 Monocytes % 4.7 Eosinophils % 0.0 Basophils % 0.1 Nucleated RBC % 0.0 Absolute Neutrophils 10.19 H Absolute Lymphocytes 0.82 L Absolute Monocytes 0.55 Absolute Eosinophils 0.00 Absolute Basophils 0.01 Sodium 138 Potassium 3.9 Chloride 102 Carbon Dioxide 30.1 Anion Gap 5.9 BUN 20 H Creatinine 0.6 Est GFR (CKD-EPI 2020) 112.73 Glucose 106 Calcium 9.2 Magnesium 2.2 Total Bilirubin 0.1 L AST 13 L ALT 92 H Alkaline Phosphatase 116 Total Protein 7.1 Albumin 3.0 L Hepatitis A IgM Ab Negative Hep Bs Antigen Negative Hep B Core Total Ab Negative Hepatitis C Antibody Reactive A HCV RNA Qual (PCR) Pending Hepatitis C RNA Quant Pending Preliminary micro results at discharge 05/07/25 20:36 Blood Blood Culture - Preliminary NO GROWTH 72 HOURS 05/07/25 20:06 Blood Blood Culture - Preliminary NO GROWTH 72 HOURS PFS All Active Problems (Updated 05/08/25 @ 20:20 by Darrell Kirkland MD) Sepsis (Acute) IVDU (intravenous drug user) (Acute) Submandibular space infection (Acute) Cellulitis of face (Acute) Insect bite (Acute) Unwanted fertility (Acute 11/02/15) l/s tubal scheduled 11/04/15 Supervision of normal IUP (intrauterine ) in multigravida (Acute 04/16/15) Tobacco abuse (Acute 03/18/18) PTSD (post-traumatic stress disorder) (Acute 03/18/18) Anxiety (Acute 06/29/16) Adjustment disorder with mixed anxiety and depressed mood (Acute 11/02/16) Medical History Anxiety Umbilical hernia Surgical History Ligation of fallopian tube Repair of umbilical hernia (08/23/16) incarcerated Family History Mother Essential hypertension Hyperlipidemia Father Alcohol abuse Mental disorder Depression Brother Personal history of malignant neoplasm rare brain cancer in infancy, resolved Grandfather , [place] at age 41. Myocardial infarction Social History Smoking/Tobacco Use Status: Current every day Tobacco Type: cigarettes Smoking risk assessment performed?: Yes Alcohol Intake: current Alcohol Intake frequency: a few times a month Drug use: Current Sobriety Substance use type: marijuana, crack/cocaine, heroin, amphetamines, hallucinogens, tranquilizers, sedatives, opiates, painkillers, club/landscape designer drugs, IV drugs, methamphetamine and prescription drug Housing: house Do you feel safe at home: Yes Do you feel safe in your relationship?: Yes Time Spent with Patient Time Spent with Patient: <45 minutes Time was spent: preparing to see the patient(eg.review tests), obtaining and/or reviewing separately otained hiistory, ordering medications,tests, procedures, referring, communicating with other health resident caregiver, indepentently interpreting results, counseling the patient and care coordination
[2025-05-11 13:28] LABS: HCV RNA Detection Quantitative 7930 IU/mL (Undetected); HCV RNA Qualitative Detected (Undetected)
== END 2025-05-11 13:02 | disposition home or self-care (01) | DRG 872 ==
LOC: ER 23:20 → MS 23:54
PROVIDERS: Admitting Provider Family Medicine; Emergency Provider Registered Nurse Emergency; PCP Nurse Practitioner; Responsible Provider Family Medicine; Visit Provider Family Medicine
DX: A41.9 Sepsis, unspecified organism (principal); L03.211 Cellulitis of face; F11.20 Opioid dependence, uncomplicated; K12.2 Cellulitis and abscess of mouth; R65.20 Severe sepsis without septic shock; F43.10 Post-traumatic stress disorder, unspecified; F17.210 Nicotine dependence, cigarettes, uncomplicated; F43.23 Adjustment disorder with mixed anxiety and depressed mood; F19.90 Other psychoactive substance use, unspecified, uncomplicated
CPT/HCPCS: 00123; 36415; 70491; 80048; 80053; 81025; 85027; 85652; 86704; 86709; 86803; 87040; 87077; 87340; 87522; 87641; 96365; 96367; 96368; 99291; J1650; 70460; 80202; 83605; 83735; 85025; 86140; 87070; 87186; 87205; 99223; 99232; 99238; J0131; J0295; J1100; J3373; J3490